=== PATIENT | female | born 1995 | race Caucasian/White ===

== ENCOUNTER → 2022-09-01 11:21 | Outpatient (CLI) | payer OTHER, BC, SELFPAY ==
[2022-09-01 11:54] LABS: Basophils # 0.1 K/mm3 (0-0.2); Basophils % 0.8 % (0.1-2.0); Eosinophils # 0.1 K/mm3 (0.0-0.4); Eosinophils % 1.5 % (0.1-12.0); Hematocrit 41.3 % (37.0-47.0); Hemoglobin 13.2 g/dL (12.2-16.2); Lymphocytes % 24.1 % (10-50); Mean Corpuscular Volume 84.5 fl (81-99); Monocytes # 0.5 K/mm3 (0.1-1.0); Monocytes % 5.6 % (1.7-9.3); Neutrophils # 5.6 K/mm3 (1.8-7.8); Neutrophils % 67.8 % (37.0-80.0); Platelet Count 340 K/mm3 (142-424); Red Blood Count 4.89 M/mm3 (4.20-5.40); Red Cell Distribution Width 14.1 % (11.5-17.5); White Blood Count 8.2 K/mm3 (4.8-10.8)
[2022-09-01 12:28] LABS: Alanine Aminotransferase 40 U/L (12-78); Albumin Level 4.6 g/dl (3.5-5.0); Albumin/Globulin Ratio 1.5 (1.1-1.8); Alkaline Phosphatase 75 U/L (38-126); Aspartate Amino Transferase 32 U/L (14-36); Bilirubin,Total 0.8 mg/dl (0.2-1.3); Blood Urea Nitrogen 10 mg/dl (7-17); Calcium 9.3 mg/dl (8.4-10.2); Carbon Dioxide 27 mmol/L (22.0-30.0); Chloride 102 mmol/L (98-107); Estimated Glomerular Filt Rate 102 ml/min (>60); GFR (African American) 123 ML/MIN (>60); Glucose 126 mg/dl (74-100); Sodium 141 mmol/L (136-145); Total Protein,Serum 7.6 g/dl (6.3-8.2)
[2022-09-01 12:44] LABS: 25-OH Vitamin D, Total 27.6 ng/mL (30-100)
[2022-09-01 13:00] LABS: Thyroid Stimulating Hormone 1.63 uIU/mL (0.465-4.68)
[2022-09-01 13:19] LABS: Vitamin B12 642 pg/mL (239-931)
[2022-09-01 17:16] LABS: Anion Gap 16.1 mEq/L (5-15); Potassium 4.1 mmoL/L (3.5-5.1)
== END ==
PROVIDERS: PCP Nurse Practitioner Family; Visit Provider Nurse Practitioner Family
DX: R73.03 Prediabetes (principal); R20.2 Paresthesia of skin; E55.9 Vitamin D deficiency, unspecified
CPT/HCPCS: 36415; 80053; 82306; 82607; 83036; 84443; 85025

== ENCOUNTER → 2022-12-14 16:12 | Outpatient (CLI) | payer OTHER, BC, SELFPAY ==
[2022-12-14 18:03] LABS: C-Reactive Protein 24.8 mg/L (0-4)
[2022-12-14 18:09] LABS: 25-OH Vitamin D, Total 42.4 ng/mL (30-100)
[2022-12-14 18:34] LABS: Erythrocyte Sedimentation Rate 13 mm/hr (0-20)
== END ==
PROVIDERS: PCP Nurse Practitioner Family; Visit Provider Nurse Practitioner Family
DX: M25.9 Joint disorder, unspecified (principal); E55.9 Vitamin D deficiency, unspecified
CPT/HCPCS: 36415; 82306; 85651; 86140

== ENCOUNTER → 2023-01-28 08:47 | Outpatient (CLI) | payer OTHER, SELFPAY ==
--- NOTE | 2023-01-28 08:57 | XR_ITS ---
FINAL REPORT CLINICAL HISTORY: wrist pain FINDINGS: LEFT WRIST Three views demonstrate no acute fracture or dislocation. The visualized joint spaces are normally aligned. The joint spaces are intact. The soft tissues are unremarkable. IMPRESSION: No acute bony abnormality. Reviewed, Interpreted and Dictated by Emanuel Cabrera III, MD Transcribed by Nury French Authenticated and [facility]
--- NOTE | 2023-01-28 08:57 | XR_ITS ---
FINAL REPORT CLINICAL HISTORY: wrist pain FINDINGS: RIGHT WRIST Three views demonstrate no acute fracture or dislocation. The visualized joint spaces are normally aligned. The joint spaces are intact. The soft tissues are unremarkable. IMPRESSION: No acute bony abnormality. Reviewed, Interpreted and Dictated by Emanuel Cabrera III, MD Transcribed by Nury French Authenticated and [facility]
== END ==
PROVIDERS: PCP Nurse Practitioner Family; Visit Provider Orthopaedic Surgery
DX: M25.532 Pain in left wrist (principal); M25.531 Pain in right wrist
CPT/HCPCS: 73110

== ENCOUNTER 2023-04-09 08:52 | Outpatient (RCR) | payer OTHER, SELFPAY | END 2023-04-09 10:00 | disposition home or self-care (01) | LOC: OT 08:52 | PROVIDERS: Visit Provider Orthopaedic Surgery | DX: G56.03 Carpal tunnel syndrome, bilateral upper limbs (principal) | CPT/HCPCS: 97763 ==

== ENCOUNTER 2023-06-15 14:46 | Emergency (ER) | payer OTHER, SELFPAY ==
[2023-06-15 14:47] VITALS: BP 148/105; PULSE 90; RESP 16; TEMP 36.6; O2SAT 99; BMI 31.4
[2023-06-15 15:16] LABS: UTC Strep Screen (Rapid) Negative (Negative)
--- NOTE | 2023-06-15 15:43 | EXP.UTC ---
Discharge Plan Disposition Patient Disposition: Home, Self-Care Condition: Good Prescriptions Prescriptions: New amoxicillin 875 mg tablet 875 mg PO BID 10 Days Qty: 20 0RF fluticasone propionate [Flonase Allergy Relief] 50 mcg/actuation spray,suspension 1 - 2 spray intranasal DAILY Qty: 16 0RF Rx Instructions: administer into each nostril No Action bupropion HCl 150 mg tablet extended release 24 hr 150 mg PO DAILY nifedipine 30 mg tablet extended release 24 hr 30 mg PO DAILY labetalol 100 mg tablet 100 mg PO BID metformin 500 mg tablet extended release 24 hr 500 mg PO BID omeprazole 20 mg capsule,delayed release(DR/EC) 20 mg PO DAILY trazodone 50 mg tablet 50 mg PO HS Referrals Follow up/Referrals: Destiny Bright APRN [Primary Care Provider] - See instructions Activity Restrictions/Add. Instructions Additional Instructions/Restrictions: *Monitor Temp, Over the counter Motrin or Tylenol as directed/as needed Tylenol every 4 hours and Motrin every 6 hours (as long as your family doctor has told you that you can take it) for fever or pain. and straight to ER if unable to lower temp less than 101.0 after medication given *Warm salt water gargles may help to soothe the throat *Throat Lozenges? *Warm fluids like tea with honey may help to soothe the throat? *Sleep elevated *Humidifier/Vaporizer *Flonase 2 sprays in each nostril daily but be aware that it may take 2-3 days before you notice improvement Your throat swab was sent for culture. Those results are typically sent to your primary care. Be sure to follow up in 2-3 days with your family doctor/primary care physician if no improvement so they can review those result and treat if necessary. If you don?t have a primary care doctor, I recommend you get one but in the mean time, you will have to return to a walk in clinic Follow up IMMEDIATELY for new or worsening symptoms or no Noticeable improvement over the next 48-72 hours. 911 for difficulty breathing or swallowing Clinical Impressions Clinical Impression: Otitis media Qualifiers: Otitis media type: in diseases classified elsewhere Laterality: bilateral Qualified Code(s): H67.3 - Otitis media in diseases classified elsewhere, bilateral Instructions Patient Instructions: Middle Ear Infection, Middle Ear Infections (Alternative Therapy) Discharge ED Provider: Snow Mcdonald [facility] [place] General Stated complaint: sore throat, runny nose, cough, bilateral ear pain Mode of Arrival: Ambulatory Source of Information: Patient Limitations: No Limitations Time Seen by Provider: 06/15/23 15:43 Description of Symptoms (Recalled from Triage Doc. by RN): Patient reports itchy/sore throat, dry cough, nasal drainage, bilateral ear pain and headache for a couple of days. HEENT Symptoms (Recalled from RN notes): Yes Resp Symptoms (Recalled from RN notes): No Skin Symptoms (Recalled from RN notes): No MS Symptoms (Recalled from RN notes): No Functional Status (Recalled from RN notes): wnl History of Present Illness Provider Complaint: Patient states for about a week she has been having bilateral ear pain and feeling of fullness in her ears States that for the last couple of days she started having sore throat, sinus congestion and drainage in the back of her throat and sore throat States that today she was feeling worse so she came in to get checked Related Data Home Medications Medication Instructions Recorded Confirmed bupropion HCl 150 mg 24 hr tablet, 150 mg PO DAILY 06/23/22 05/14/23 extended release nifedipine 30 mg tablet,extended 30 mg PO DAILY 06/23/22 05/14/23 release 24 hr labetalol 100 mg tablet 100 mg PO BID 05/14/23 05/14/23 metformin 500 mg tablet,extended 500 mg PO BID 05/14/23 05/14/23 release 24 hr omeprazole 20 mg capsule,delayed 20 mg PO DAILY 05/14/23 05/14/23 release trazodone 50 mg tablet 50 mg
[2023-06-15 15:59] VITALS: BP 148/105; PULSE 90; RESP 16; TEMP 36.6; O2SAT 99
== END 2023-06-15 16:00 | disposition home or self-care (01) ==
PROVIDERS: Emergency Provider Nurse Practitioner; PCP Nurse Practitioner Family
DX: H66.93 Otitis media, unspecified, bilateral
CPT/HCPCS: 87880; 99204; 99212; G0463

== ENCOUNTER 2023-09-10 14:38 | Emergency (ER) | payer OTHER, SELFPAY ==
[2023-09-10 14:55] VITALS: BP 140/90; PULSE 81; RESP 19; TEMP 37; O2SAT 99; BMI 30.4
[2023-09-10 15:13] LABS: Color,Urine Dark Yellow (Yellow)
[2023-09-10 15:14] LABS: Apearance,Urine Cloudy (Clear); Bilirubin,Urine 1+ (Negative); Blood, Urine Negative (Negative); Glucose,Urine (UA) Negative (Negative); Ketones,Urine TRACE (Negative); Protein,Urine 1+ (Negative); UTC Leukocyte Esterase,Urine Trace (Negative); UTC Nitrate,Urine Negative (Negative); Urobilinogen,Urine 0.2 EU/dl (0.2)
--- NOTE | 2023-09-10 15:25 | EXP.UTC ---
Discharge Plan Disposition Patient Disposition: Home, Self-Care Condition: Good Prescriptions Prescriptions: New nitrofurantoin monohyd/m-cryst [Macrobid] 100 mg capsule 100 mg PO Q12H 5 Days Qty: 10 0RF Rx Instructions: must administer with a meal/food No Action bupropion HCl 150 mg tablet extended release 24 hr 150 mg PO DAILY nifedipine 60 mg tablet extended release 24hr 60 mg PO DAILY trazodone 50 mg tablet 100 mg PO HS Qty: 30 2RF ibuprofen 800 mg tablet 800 mg PO Q8H Qty: 90 2RF labetalol 100 mg tablet 100 mg PO BID metformin 500 mg tablet extended release 24 hr 500 mg PO BID omeprazole 20 mg capsule,delayed release(DR/EC) 20 mg PO DAILY Referrals Follow up/Referrals: Destiny Bright APRN [Primary Care Provider] - See instructions Activity Restrictions/Add. Instructions Additional Instructions/Restrictions: *Increase fluids. Water not Soda or Tea *Start antibiotic immediately and be sure to take as ordered for the FULL length of time although you should start to see improvement over the next 48 hours *Be SURE to follow up anytime for new or worsening symptoms with your family doctor. AND in 48 hours for urine culture results with your family doctor, if you do not have a doctor then you may call back to the [facility] for urine culture results and further treatment. We do recommend that you choose and establish care with a Primary Care Physician. ?AND follow up with them ?in 10-14 days to repeat UA to ensure infection is resolved and blood no longer present *Be sure to let your PCP know that we sent urine cultures from the [facility] so they can follow up to ensure that you area the on the correct antibiotic Call your doctor office and make appointment for 48 hours (2 days from today) ?to follow up and get the results of your urine culture and further treatment Clinical Impressions Clinical Impression: UTI (urinary tract infection) Qualifiers: Urinary tract infection type: site unspecified Hematuria presence: without hematuria Qualified Code(s): N39.0 - Urinary tract infection, site not specified Instructions Patient Instructions: DI for Urinary Tract Infection (UTI), Nitrofurantoin Discharge ED Provider: Snow Mcdonald [facility] [place] HPI General Stated complaint: POSSIBLE UTI Mode of Arrival: Ambulatory Source of Information: Patient Limitations: No Limitations Time Seen by Provider: 10/27/23 15:25 Description of Symptoms (Recalled from Triage Doc. by RN): PATIENT C/O FREQUENT URINATION X 3 DAYS HEENT Symptoms (Recalled from RN notes): No Resp Symptoms (Recalled from RN notes): No Skin Symptoms (Recalled from RN notes): No MS Symptoms (Recalled from RN notes): No Functional Status (Recalled from RN notes): WNL History of Present Illness Provider Complaint: Patient states that she has been having urinary frequency and urgency for the last few days states that she feels like she may have a UTI again Related Data Home Medications Medication Instructions Recorded Confirmed bupropion HCl 150 mg 24 hr tablet, 150 mg PO DAILY 06/23/22 08/10/23 extended release labetalol 100 mg tablet 100 mg PO BID 05/14/23 08/10/23 metformin 500 mg tablet,extended 500 mg PO BID 05/14/23 08/10/23 release 24 hr omeprazole 20 mg capsule,delayed 20 mg PO DAILY 05/14/23 08/10/23 release nifedipine 60 mg tablet,extended 60 mg PO DAILY 08/10/23 08/10/23 release 24 hr Previous Rx's Medication Instructions Recorded ibuprofen 800 mg tablet 800 mg PO Q8H #90 tabs 08/10/23 trazodone 50 mg tablet 100 mg PO HS #30 tabs 08/10/23 nitrofurantoin 100 mg PO Q12H 5 days #10 caps 09/10/23 monohydrate/macrocrystals 100 mg capsule (Macrobid) Allergies Allergy/AdvReac Type Severity Reaction Status Date / Time cephalexin [From Keflex] Allergy Severe Rash Verified 08/10/23 09:53 Worker's Comp Is this a Worker's Comp case?: No [facility] Disclaimer: The information cont
[2023-09-10 15:36] VITALS: BP 140/90; PULSE 81; RESP 19; TEMP 37; O2SAT 99
[2023-09-10 15:46] LABS: Urine Pregnancy, HCG Qual. Negative (Negative)
== END 2023-09-10 16:00 | disposition home or self-care (01) ==
PROVIDERS: Emergency Provider Nurse Practitioner; PCP Nurse Practitioner Family
DX: N39.0 Urinary tract infection, site not specified (principal); B96.89 Other specified bacterial agents as the cause of diseases classified elsewhere; I10 Essential (primary) hypertension
CPT/HCPCS: 81003; 81025; 87086; 99212; 99214; G0463

== ENCOUNTER 2023-10-18 17:09 | Emergency (ER) | payer OTHER, SELFPAY ==
[2023-10-18 19:30] VITALS: BP 117/84; PULSE 85; RESP 18; TEMP 37.1; O2SAT 99; BMI 28.5
--- NOTE | 2023-10-18 20:00 | EXP.UTC ---
Discharge Plan Disposition Patient Disposition: Home, Self-Care Condition: Good Prescriptions Prescriptions: No Action bupropion HCl 150 mg tablet extended release 24 hr 150 mg PO DAILY nifedipine 60 mg tablet extended release 24hr 60 mg PO DAILY labetalol 100 mg tablet 100 mg PO BID metformin 500 mg tablet extended release 24 hr 500 mg PO BID omeprazole 20 mg capsule,delayed release(DR/EC) 20 mg PO DAILY Referrals Follow up/Referrals: Destiny Bright APRN [Primary Care Provider] - See instructions Activity Restrictions/Add. Instructions Additional Instructions/Restrictions: *Monitor Temp, Over the counter Motrin or Tylenol as directed/as needed Tylenol every 4 hours and Motrin every 6 hours (as long as your family doctor has told you that you can take it) for fever or pain. and straight to ER if unable to lower temp less than 101.0 after medication given *Warm salt water gargles may help to soothe the throat *Throat Lozenges? *Warm fluids like tea with honey may help to soothe the throat? *Sleep elevated *Humidifier/Vaporizer *Flonase 2 sprays in each nostril daily but be aware that it may take 2-3 days before you notice improvement *Bromfed may cause drowsiness. Know how it effects you (your child) before driving, caring for small child, or sending your child to school. Not other antihistamines/allergy medications while taking bromfed Your throat swab was sent for culture. Those results are typically sent to your primary care. Be sure to follow up in 2-3 days with your family doctor/primary care physician if no improvement so they can review those result and treat if necessary. If you don?t have a primary care doctor, I recommend you get one but in the mean time, you will have to return to a walk in clinic Follow up IMMEDIATELY for new or worsening symptoms or no Noticeable improvement over the next 48-72 hours. 911 for difficulty breathing or swallowing You were tested for today for COVID19 your test result should be back later this evening You may check for your results on the [facility] if your COVID test is positive you must Quarantine for 5 days Clinical Impressions Clinical Impression: Viral syndrome Stand Alone Forms Stand Alone Forms: Work/School Release Instructions Patient Instructions: DI for Viral Syndrome Discharge ED Provider: Snow Mcdonald [facility] [place] General Stated complaint: zay, ear pain Mode of Arrival: Ambulatory Source of Information: Patient Limitations: No Limitations Time Seen by Provider: 10/18/23 20:00 Description of Symptoms (Recalled from Triage Doc. by RN): congestion, cough, and bilateral ear pain HEENT Symptoms (Recalled from RN notes): Yes Resp Symptoms (Recalled from RN notes): No Skin Symptoms (Recalled from RN notes): No MS Symptoms (Recalled from RN notes): No Functional Status (Recalled from RN notes): n/a History of Present Illness Provider Complaint: Patient states that she has been having bilateral ear pain and pressure, scratchy throat, nasal congestion and cough states that son has strep throat and she was recently around someone with COVID so she came in wanting to get tested Related Data Home Medications Medication Instructions Recorded Confirmed bupropion HCl 150 mg 24 hr tablet, 150 mg PO DAILY 06/23/22 10/18/23 extended release labetalol 100 mg tablet 100 mg PO BID 05/14/23 10/18/23 metformin 500 mg tablet,extended 500 mg PO BID 05/14/23 10/18/23 release 24 hr omeprazole 20 mg capsule,delayed 20 mg PO DAILY 05/14/23 10/18/23 release nifedipine 60 mg tablet,extended 60 mg PO DAILY 08/10/23 10/18/23 release 24 hr Allergies Allergy/AdvReac Type Severity Reaction Status Date / Time cephalexin [From Keflex] Allergy Severe Rash Verified 10/18/23 19:49 Worker's Comp Is this a Worker's Comp case?: No [facility] Disclaimer: The information contained
[2023-10-18 20:18] LABS: UTC Strep Screen (Rapid) Negative (Negative)
[2023-10-18 20:31] VITALS: BP 117/84; PULSE 85; RESP 18; TEMP 37.1; O2SAT 99
[2023-10-18 21:33] LABS: Coronavirus 19, PCR Not Detected (NotDetected); Influenza A, PCR Not Detected (NotDetected); Influenza B, PCR Not Detected (NotDetected)
== END 2023-10-18 20:31 | disposition home or self-care (01) ==
PROVIDERS: Emergency Provider Nurse Practitioner; PCP Nurse Practitioner Family
DX: H92.03 Otalgia, bilateral (principal); R05.9 Cough, unspecified; R09.81 Nasal congestion; R07.0 Pain in throat; Z20.818 Contact with and (suspected) exposure to other bacterial communicable diseases; Z20.822 Contact with and (suspected) exposure to COVID-19; I10 Essential (primary) hypertension
CPT/HCPCS: 87636; 87880; 99212; 99213; G0463

== ENCOUNTER 2024-03-02 14:47 | Outpatient (CLI) | payer OTHER, SELFPAY ==
[2024-03-02 15:23] LABS: Basophils # 0.1 K/mm3 (0-0.2); Basophils % 0.6 % (0.1-2.0); Eosinophils # 0.2 K/mm3 (0.0-0.4); Eosinophils % 1.8 % (0.1-12.0); Hematocrit 40.7 % (37.0-47.0); Lymphocytes # 2.9 K/mm3 (0.7-4.5); Lymphocytes % 28.8 % (10-50); Mean Corpuscular Hemoglobin 26.8 pg (27.0-31.2); Mean Corpuscular Volume 83.7 fl (81-99); Mean Platelet Volume 8.3 fl (7.4-10.4); Monocytes # 0.7 K/mm3 (0.1-1.0); Monocytes % 6.9 % (1.7-9.3); Neutrophils # 6.3 K/mm3 (1.8-7.8); Neutrophils % 61.9 % (37.0-80.0); Platelet Count 327 K/mm3 (142-424); Red Blood Count 4.86 M/mm3 (4.20-5.40); Red Cell Distribution Width 15.3 % (11.5-17.5); White Blood Count 10.2 K/mm3 (4.8-10.8)
[2024-03-02 15:27] LABS: Alanine Aminotransferase 36 U/L (12-78); Albumin Level 4.8 g/dl (3.5-5.0); Albumin/Globulin Ratio 1.8 (1.1-1.8); Alkaline Phosphatase 47 U/L (38-126); Anion Gap 12.3 mEq/L (5-15); Aspartate Amino Transferase 30 U/L (14-36); Bilirubin,Total 0.7 mg/dl (0.2-1.3); Blood Urea Nitrogen 17 mg/dl (7-17); Calcium 10.5 mg/dl (8.4-10.2); Carbon Dioxide 28 mmol/L (22.0-30.0); Chloride 105 mmol/L (98-107); Estimated Glomerular Filt Rate 87 ml/min (>60); GFR (African American) 105 ML/MIN (>60); Globulin 2.7 g/dL (1.3-3.2); Glucose 96 mg/dl (74-100); Potassium 4.3 mmoL/L (3.5-5.1); Sodium 141 mmol/L (136-145); Total Protein,Serum 7.5 g/dl (6.3-8.2)
== END 2024-03-02 23:59 | disposition home or self-care (01) ==
LOC: LAB 14:48
PROVIDERS: PCP Nurse Practitioner Family; Visit Provider Orthopaedic Surgery
DX: Z01.818 Encounter for other preprocedural examination (principal); G56.01 Carpal tunnel syndrome, right upper limb
CPT/HCPCS: 36415; 80053; 85025

== ENCOUNTER 2024-03-06 06:03 | Day surgery (SDC) | payer OTHER, SELFPAY ==
[2024-03-06] VITALS (10 sets, daily range): BP systolic 127–162; BP diastolic 81–94; PULSE 82–92; RESP 16–22; TEMP 35.7–36.6; O2SAT 93–100; BMI 29.9
[2024-03-06] MEDS: LACTATED RINGERS 1000ML 1,000 ML 25 ML IV (06:27)
[2024-03-06 06:37] LABS: POC Glucose,Bedside 124 (70-110)
[2024-03-06 06:44] LABS: Urine Pregnancy, HCG Qual. Negative (Negative)
[2024-03-06] MEDS: CLINDAMYCIN PHOSPHATE/D5W 900 MG/50 ML PIGGYBACK 50 MG (07:25)
--- NOTE | 2024-03-06 07:52 | P.PNANES_ITS ---
[facility] Disclaimer: The information contained in this section may have been updated after the patient was seen, as this information can be updated by other users. Medical History Depression History of prediabetes History of PCOS Menorrhagia Hypertension Surgical History Hx of tonsillectomy Family History Other Cancer FHx: mental illness Heart attack Hypertension Social History (Updated 03/06/24 @ 06:28 by Micky Hernandez RN) Smoking Status: Never smoker alcohol intake: never substance use type: denies use current occupational status: employed Travel in the last 8 weeks: None [facility] Anesthesia Checklist Patient Identification Patient Identification: Verbal (Name & ) Structural Data Admitted From: Home Planned Operative Procedure/s: r carpal tunnel release Consent for Planned Operative Procedure(s) Verified: Yes NPO Status Verified Time NPO: 00:00 Additional verifications Anesthesia Reactions: No Hx Blood Transfusions: No Blood Transfusion Reaction: No Airway Assessment Mallampati Score:: Class II C-Spine Mobility Assessed: Yes TMJ Mobility Assessed: Yes Dentition: Partials Neurological Assessment Level of Consciousness: Awake, Alert and Appropriate Anesthesia Plan Anesthesia Risk discussed: Yes Anesthesia Plan: Verified ASA Class: II Anesthesia Type: General
[2024-03-06] MEDS: BUPIVACAINE 0.5% W/EPI 1:200,000 30ML VIAL 30 ML IJ ×2 (07:55)
--- NOTE | 2024-03-06 08:16 | P.OP_ITS ---
Date of procedure: 03/06/24 Pre-op Diagnosis:: Right carpal tunnel syndrome Post-op Diagnosis:: Same Procedure performed:: Right endoscopic carpal tunnel release Surgeon:: Gato Hill DO SPEECH PATHOLOGIST:: Nuvia Vargas Anesthesia: LMA Estimated blood loss (mL): 0 Operative findings:: See dictation Operative note:: Patient was identified preoperatively. Right wrist marked with yes and my initials. Transferred operative suite. Placed upon operating bed. General anesthesia ministered airway secured. Right upper extremity prepped and draped normal sterile fashion. Once prepped and draped final operative timeout perf ormed to identify proper patient procedure and extremity. Everyone involved the case agreed. There is no counter indications to beginning. Did receive preoperative antibiotics clindamycin. Marking pen was used to tiffany plan incision over the volar wrist. Esmarch was used to exsanguinate the extremity and pneumatic tourniquet inflated to 250 mmHg. Skin knife is used to incise through skin scissors used for dissection to take down bluntly to identify the most proximal aspect of the transverse carpal ligament. Retractors were placed. Once this was identified the dilators from the segue endoscopic carpal tunnel set were utilized followed by the right sided sled 4.0 mm into the carpal tunnel. Camera was then introduced into the carpal tunnel. Transverse carpal ligament clearly seen superiorly within the wound. A hooked probe was used to identify the most distal aspect the transverse carpal ligament the rasp was used to remove the soft tissue from the undersurface of the transverse carpal ligament and then the curved blade was utilized to open the transverse carpal ligament and release the carpal tunnel. Irrigation of the wound performed local anesthesia infiltrated the incision skin closed with nylon stitch sterile hand dressing placed patient waken anesthesia taken recovery stable condition. Condition: stable Disposition: PACU Complications:: None apparent
--- NOTE | 2024-03-06 08:20 | EXP.ANES.I ---
[facility] Anesthesia Record Part I Anesthesia Record I Intake, IV Amount: 200 Hydration: Adequate Estimated blood loss (mL): 5 Urine output (mL): 0 Blood Pressure: 142/93 SaO2: 94 Pulse Rate: 87 Airway Patency: Patent Respiratory Rate: 16 Temperature: 96.2 F Patient is:: Awake, Drowsy, Mask O2 (10L/min), Oral/Nasal airway (#26Fr Nasal trumpet RT. nare; #10.0 oral airway) and Stable Stable to PACU at:: 08:18
[2024-03-06 08:30] LABS: POC Glucose,Bedside 110 (70-110)
--- NOTE | 2024-03-06 12:14 | P.PNANES_ITS ---
[facility] Anesthesia Record Part II Anesthesia Record Part II Discharge Time: 08:43 Destination: Surgical Day Care (OP Surgery) PACU nurse assessment reviewed?: Yes Patient Condition:: Good Anesthesia Complications:: None Swallowing reflex intact?: Yes Airway Patency: Patent Cyanosis?: No Blood Pressure: 162/86 SaO2: 95 Respiratory Rate: 20 Pulse Rate: 90 Temperature: 96.2 F Mental Status: Alert & Oriented Pain level:: 0 Nausea and/or vomitting:: None Intake, IV Amount: 200 Hydration: Adequate
== END 2024-03-06 09:14 | disposition home or self-care (01) ==
PROVIDERS: PCP Nurse Practitioner Family; Visit Provider Orthopaedic Surgery
PROC: (CPT 64721; principal; 2024-03-06 07:30)
DX: G56.01 Carpal tunnel syndrome, right upper limb (principal)
CPT/HCPCS: 29848; 81025; 82962; 96374; J2405

== ENCOUNTER 2024-05-24 07:25 | Outpatient (CLI) | payer OTHER, SELFPAY ==
[2024-05-24 07:40] LABS: Basophils % 0.5 % (0.1-2.0); Eosinophils # 0.1 K/mm3 (0.0-0.4); Eosinophils % 1.9 % (0.1-12.0); Hematocrit 40.4 % (37.0-47.0); Lymphocytes # 1.3 K/mm3 (0.7-4.5); Lymphocytes % 22.6 % (10-50); Mean Corpuscular HGB Conc 32.3 g/dL (31.8-35.4); Mean Corpuscular Hemoglobin 27.8 pg (27.0-31.2); Mean Corpuscular Volume 86.1 fl (81-99); Mean Platelet Volume 7.9 fl (7.4-10.4); Monocytes # 0.6 K/mm3 (0.1-1.0); Monocytes % 10.9 % (1.7-9.3); Neutrophils # 3.8 K/mm3 (1.8-7.8); Neutrophils % 64.1 % (37.0-80.0); Platelet Count 275 K/mm3 (142-424); Red Blood Count 4.69 M/mm3 (4.20-5.40); White Blood Count 5.9 K/mm3 (4.8-10.8)
[2024-05-24 08:22] LABS: Alanine Aminotransferase 74 U/L (12-78); Albumin Level 4.5 g/dl (3.5-5.0); Albumin/Globulin Ratio 1.7 (1.1-1.8); Alkaline Phosphatase 45 U/L (38-126); Anion Gap 14.6 mEq/L (5-15); Aspartate Amino Transferase 42 U/L (14-36); Blood Urea Nitrogen 8 mg/dl (7-17); Calcium 9.4 mg/dl (8.4-10.2); Carbon Dioxide 25 mmol/L (22.0-30.0); Chloride 103 mmol/L (98-107); Estimated Glomerular Filt Rate 100 ml/min (>60); GFR (African American) 121 ML/MIN (>60); Globulin 2.7 g/dL (1.3-3.2); Glucose 119 mg/dl (74-100); Potassium 3.6 mmoL/L (3.5-5.1); Sodium 139 mmol/L (136-145); Total Protein,Serum 7.2 g/dl (6.3-8.2)
[2024-05-25 15:14] LABS: Insulin Level Total 35.7 uIU/mL (2.6-24.9)
== END 2024-05-24 23:59 | disposition home or self-care (01) ==
LOC: LAB 07:25
PROVIDERS: Orthopaedic Surgery; PCP Nurse Practitioner Family; Visit Provider Obstetrics & Gynecology
DX: N93.9 Abnormal uterine and vaginal bleeding, unspecified (principal); N94.6 Dysmenorrhea, unspecified; E28.2 Polycystic ovarian syndrome; N92.0 Excessive and frequent menstruation with regular cycle; I10 Essential (primary) hypertension; R73.03 Prediabetes
CPT/HCPCS: 36415; 80053; 83525; 85025

== ENCOUNTER 2024-05-29 06:47 | Day surgery (SDC) | payer OTHER, SELFPAY ==
[2024-05-25 12:44] VITALS: BMI 31.1
[2024-05-29] VITALS (10 sets, daily range): BP systolic 123–152; BP diastolic 79–97; PULSE 85–116; RESP 14–18; TEMP 36–36.6; O2SAT 91–98
[2024-05-29 07:07] LABS: Urine Pregnancy, HCG Qual. Negative (Negative)
[2024-05-29] MEDS: LACTATED RINGERS 1000ML 1,000 ML 100 ML IV (07:11)
[2024-05-29 07:17] LABS: POC Glucose,Bedside 116 (70-110)
--- NOTE | 2024-05-29 07:41 | EXP.ANES.CKL ---
[facility] Disclaimer: The information contained in this section may have been updated after the patient was seen, as this information can be updated by other users. Medical History Prediabetes Depression History of prediabetes History of PCOS Menorrhagia Hypertension Surgical History History of carpal tunnel surgery Hx of tonsillectomy Family History Other Cancer FHx: mental illness Heart attack Hypertension Social History (Updated 05/25/24 @ 12:41 by Becky Tripathi RN) Smoking Status: Never smoker alcohol intake: never substance use type: denies use current occupational status: employed Travel in the last 8 weeks: None [facility] Anesthesia Checklist Patient Identification Patient Identification: Arm Band Structural Data Admitted From: Home Planned Operative Procedure/s: Left Carpal Tunnel Release Consent for Planned Operative Procedure(s) Verified: Yes Verified Documents: Surgical Consent and History and Physical NPO Status Verified Time NPO: 00:00 Additional verifications Anesthesia Reactions: No Hx Blood Transfusions: No Blood Transfusion Reaction: No Airway Assessment Mallampati Score:: Class II C-Spine Mobility Assessed: Yes TMJ Mobility Assessed: Yes Dentition: Good Dentition Neurological Assessment Level of Consciousness: Awake, Alert and Appropriate Anesthesia Plan Anesthesia Risk discussed: Yes Anesthesia Plan: Verified ASA Class: II Anesthesia Type: General
[2024-05-29] MEDS: CLINDAMYCIN PHOSPHATE/D5W 900 MG/50 ML PIGGYBACK 100 MG IV (08:36)
[2024-05-29] MEDS: LIDOCAINE 1% 10ML MDV 10 ML (08:59)
[2024-05-29] MEDS: BUPIVACAINE 0.5% 10ML VIAL 50 MG (08:59)
--- NOTE | 2024-05-29 09:13 | P.OP_ITS ---
Date of procedure: 05/29/24 Pre-op Diagnosis:: Left carpal tunnel syndrome Post-op Diagnosis:: Same Procedure performed:: Left endoscopic carpal tunnel release Surgeon:: Gaot Hill DO Director Radiation Oncology(s):: Nnamdi [employer] OPERATOR:: Nuvia Vargas Anesthesia: LMA Estimated blood loss (mL): 0 Operative findings:: See dictation Operative note:: Patient is identified preoperatively. Left wrist marked with yes and my initials. Taken the operating room. Placed upon operating bed. General anesthesia was administered airway secured. Left upper extremity was then prepped and draped normal sterile fashion. Once prepped and draped final operative timeout performed to identify proper patient procedure and extremity. Everyone involved the case agreed. There were no counter indications to beginning. She did receive preoperative antibiotics. Marking pen was used to make planned incision over the volar wrist. Esmarch was used to exsanguinate the extremity and pneumatic tourniquet was inflated to 250 mmHg. Skin knife was used incise through skin. Dissection was taken down with scissors and retractors were placed to identify the most proximal aspect the transverse carpal ligament. Small dilator was then placed in the carpal tunnel followed by the larger dilator followed by the 4.0 mm sled. Within the sled the camera was then placed in the carpal tunnel. Transverse carpal ligament clearly seen superiorly in the wound. Probe was used to identify the most distal aspect the transverse carpal ligament. Rasp was used to remove soft tissue from the undersurface transverse carpal ligament. And then the hook blade was utilized to incise the transverse carpal ligament in its full length. Irrigation of the wounds performed. Skin was closed with nylon stitches. Sterile hand dressing placed. Patient waken anesthesia taken recovery in stable condition. Condition: stable Disposition: PACU Complications:: None apparent
--- NOTE | 2024-05-29 09:23 | P.PNANES_ITS ---
[facility] Anesthesia Record Part I Anesthesia Record I Intake, IV Amount: 500 Hydration: Adequate Estimated blood loss (mL): 10 Urine output (mL): 0 Blood Products used (#): none Blood Pressure: 142/92 SaO2: 92 Pulse Rate: 96 Airway Patency: Patent Respiratory Rate: 16 Temperature: 96.8 F Patient is:: Awake (Talking after oral airway removed), Oral/Nasal airway (9.0 oral airway) and Stable Stable to PACU at:: 09:22
[2024-05-29 09:29] LABS: POC Glucose,Bedside 116 (70-110)
--- NOTE | 2024-05-29 11:03 | EXP.ANES.II ---
[facility] Anesthesia Record Part II Anesthesia Record Part II Discharge Time: 09:47 Destination: Surgical Day Care (OP Surgery) PACU nurse assessment reviewed?: Yes Patient Condition:: Good Anesthesia Complications:: None Swallowing reflex intact?: Yes Airway Patency: Patent Cyanosis?: No Blood Pressure: 134/79 SaO2: 93 Respiratory Rate: 18 Pulse Rate: 86 Temperature: 96.8 F Mental Status: Alert & Oriented Pain level:: 0 Nausea and/or vomitting:: None Intake, IV Amount: 500 Hydration: Adequate
== END 2024-05-29 10:20 | disposition home or self-care (01) ==
PROVIDERS: PCP Nurse Practitioner Family; Visit Provider Orthopaedic Surgery
PROC: (CPT 64721; principal; 2024-05-29 08:30)
DX: G56.02 Carpal tunnel syndrome, left upper limb (principal); E11.9 Type 2 diabetes mellitus without complications; Z79.84 Long term (current) use of oral hypoglycemic drugs
CPT/HCPCS: 29848; 81025; 82962; 96374; J1100; J1885; J2250; J2405; J3010; J7120

== ENCOUNTER 2024-06-08 08:21 | Outpatient (CLI) | payer OTHER, SELFPAY ==
[2024-06-09 08:21] LABS: FSH 5.2 mIU/mL (.); LH 11.5 mIU/mL (.); Progesterone 0.1 ng/mL (.)
== END 2024-06-08 23:59 | disposition home or self-care (01) ==
LOC: LAB 08:22
PROVIDERS: PCP Nurse Practitioner Family; Visit Provider Obstetrics & Gynecology
DX: E28.2 Polycystic ovarian syndrome (principal)
CPT/HCPCS: 36415; 83001; 83002; 84144

== ENCOUNTER 2024-06-16 12:47 | Outpatient (CLI) | payer OTHER, SELFPAY ==
--- NOTE | 2024-06-16 12:48 | US_ITS ---
PROCEDURE: US TRANSVAGINAL CLINICAL INDICATION: US TV for FOLLICLE SCAN -DAY 11-14 COMPARISON: No exams were available for comparison FINDINGS: Transvaginal sonographic images of the pelvis were obtained. UTERUS: 8.2cm x 4.5cmx 4.0cm anteverted with a combined endometrial thickness of 7.9mm. The endometrium has a heterogenous appearance. There is a small hypoechoic area within the endometrium. LEFT OVARY: 3.3cmx1.3cmx3.0cm with a volume of 6.7ml. Follicle 1. 1.23 cm Follicle 2. 0.6 cm Follicle 3. 0.5 cm Follicle 4. 0.83 cm Follicle 5. 0.9 cm Follicle 6. 0.54 cm Follicle 7. 0.63 cm Follicle 8. 0.67 cm The ovary has a polycystic appearance and there are multiple other small follicles. RIGHT OVARY: 4.4cmx 3.0cmx2.8 cm with a volume of 18.8ml. Follicle 1. 1.35 cm Follicle 2. 1.2 cm Follicle 3. 0.56 cm Follicle 4. 0.78 cm Follicle 5. 0.60 cm Follicle 6. 1.24 cm The ovary has a polycystic appearance and there are multiple small follicles within the ovary. Both ovaries are seen and appear polycystic. Doppler flow to both ovaries are seen. There is no fluid in the cul-de-sac. IMPRESSION: 1. Anteverted uterus normal in shape and size. The endometrium is heterogenous and measures 7.6 mm. 2. Both ovaries are seen and appear polycystic. There are at least 8 follicles on the left ovary and 6 follicles on the right ovary. 3. No fluid in the cul-de-sac. Dictated by: Calixto Pena MD 06/17/2024 10:35 Calixto Pena MD in OV 06/17/2024 10:35
== END 2024-06-16 23:59 | disposition home or self-care (01) ==
LOC: RAD 12:48
PROVIDERS: PCP Nurse Practitioner Family; Visit Provider Obstetrics & Gynecology
DX: E28.2 Polycystic ovarian syndrome (principal); Z31.41 Encounter for fertility testing
CPT/HCPCS: 76830

== ENCOUNTER 2024-06-22 12:42 | Outpatient (CLI) | payer OTHER, SELFPAY ==
--- NOTE | 2024-06-22 12:43 | US_ITS ---
PROCEDURE: US TRANSVAGINAL CLINICAL INDICATION: follow up ovulation scan to measure/monitor ovaria COMPARISON: US US TRANSVAGINAL from 06/16/2024 FINDINGS: Transvaginal sonographic images of the pelvis were obtained. UTERUS: 9.1cm x 4.4cm anteverted with a combined endometrial thickness of 11.7mm. The endometrium appears trilaminar. LEFT OVARY: 4.0cmx3.1cmx3.2cm with a volume of 20.8ml. Follicle 1. 2.06 cm Follicle 2. 0.51 cm Follicle 3. 0.47 cm Follicle 4. 1.47 cm Follicle 5. 0.66 cm Follicle 6. 0.62 RIGHT OVARY: 5.0cmx 4.2cmx3.2cm with a volume of 35.1ml. Follicle 1. 2.29 cm Follicle 2. 0.37 cm Follicle 3. 0.50 cm Follicle 4. 0.63 cm Follicle 5. 0.66 cm There are multiple small peripheral follicles. Both ovaries are seen and appear normal. Doppler flow to both ovaries are seen. There is no fluid in the cul-de-sac. IMPRESSION: 1. Anteverted uterus normal in shape and size. The endometrium is 11.7 mm and trilaminar. 2. Both ovaries are seen and have multiple follicles. The left ovary has 2 prominent follicles measuring 2.06 cm and 1.47 cm. The left ovary has a dominant follicle measuring 2.29 cm. 3. No fluid in the cul-de-sac. Dictated by: Calixto Pena MD 06/22/2024 17:23 Calixto Pena MD in [place] 06/22/2024 17:23
== END 2024-06-22 23:59 | disposition home or self-care (01) ==
LOC: RAD 12:43
PROVIDERS: PCP Nurse Practitioner Family; Visit Provider Obstetrics & Gynecology
DX: E28.2 Polycystic ovarian syndrome (principal); Z31.9 Encounter for procreative management, unspecified
CPT/HCPCS: 76830

== ENCOUNTER 2024-06-26 07:11 | Outpatient (CLI) | payer OTHER, SELFPAY ==
[2024-06-27 08:30] LABS: FSH 3.3 mIU/mL (.); LH 21.1 mIU/mL (.); Progesterone 15.5 ng/mL (.)
== END 2024-06-26 23:59 | disposition home or self-care (01) ==
LOC: LAB 07:12
PROVIDERS: PCP Nurse Practitioner Family; Visit Provider Obstetrics & Gynecology
DX: E28.2 Polycystic ovarian syndrome (principal)
CPT/HCPCS: 36415; 83001; 83002; 84144

== ENCOUNTER 2024-07-05 10:50 | Outpatient (CLI) | payer OTHER, SELFPAY ==
[2024-07-05 12:48] LABS: HCG,Quantitative 36 mIU/ml (0-5.42)
[2024-07-06 12:12] LABS: Progesterone 35.8 ng/mL (.)
== END 2024-07-05 23:59 | disposition home or self-care (01) ==
PROVIDERS: PCP Nurse Practitioner Family; Visit Provider Obstetrics & Gynecology
DX: N91.2 Amenorrhea, unspecified (principal)
CPT/HCPCS: 36415; 84144; 84702

== ENCOUNTER 2024-07-07 07:23 | Outpatient (CLI) | payer OTHER, SELFPAY ==
[2024-07-07 08:41] LABS: HCG,Quantitative 106 mIU/ml (0-5.42)
== END 2024-07-07 23:59 | disposition home or self-care (01) ==
LOC: LAB 07:24
PROVIDERS: PCP Nurse Practitioner Family; Visit Provider Obstetrics & Gynecology
DX: N91.2 Amenorrhea, unspecified (principal)
CPT/HCPCS: 36415; 84702

== ENCOUNTER 2024-07-09 19:03 | Emergency (ER) | payer OTHER, SELFPAY ==
[2024-07-09 19:04] VITALS: BP 178/87; PULSE 158; RESP 22; TEMP 36.6; O2SAT 97; BMI 30.9
--- NOTE | 2024-07-09 19:10 | ECG_ITS ---
APPROVED REPORT Exam: Resting ECG HR:150 bpm ECG Measurements Heart Rate 150 AXES WY 120 P 71 QRSd 71 QRS 78 QT 266 T 10 QTc 352 Conclusion SINUS TACHYCARDIA NONSPECIFIC ST & T-WAVE ABNORMALITY CRITICAL TEST RESULT Electronically signed by : PATRICK QUARLES, 07/10/2024 15:10:09
--- NOTE | 2024-07-09 19:13 | XR_ITS ---
PROCEDURE INFORMATION: Exam: XR Chest Exam date and time: 07/09/2024 8:34 PM Age: 29 years old Clinical indication: Other: Tachycardia TECHNIQUE: Imaging protocol: Radiologic exam of the chest. Views: 1 view. COMPARISON: No relevant prior studies available. FINDINGS: Lungs: No evidence of acute pulmonary disease or infiltrates Pleural spaces: No large effusion or pneumothorax. Heart/Mediastinum: No evidence of mediastinal widening or cardiac silhouette enlargement; the mediastinum and heart appear within normal limits for contour and size. Bones/joints: No evidence of acute osseous abnormalities within the visualized portions of the thoracic spine and ribs. Osseous structures appear appropriate for patient age. Soft tissues: There are bilateral nipple piercings. IMPRESSION: No dense parenchymal consolidation, pleural effusion, or pneumothorax.
[2024-07-09 19:30] VITALS: BP 173/100; PULSE 140; O2SAT 97
[2024-07-09 19:31] VITALS: BP 165/94; PULSE 145; O2SAT 97
--- NOTE | 2024-07-09 19:32 | PC.NURSE ---
Paged on-call OBGYN for Dr. Kirkland
--- NOTE | 2024-07-09 19:34 | US_ITS ---
PROCEDURE INFORMATION: Exam: US , Transvaginal Exam date and time: 07/09/2024 7:49 PM Age: 29 years old Clinical indication: Lmp or gestational age (in weeks): Lmp 06/06/2024; Other: Tachycardia; ; Additional info: Rule out ectopic LABS AND CLINICAL REPORTS: Last menstrual period start date: 06/06/2024 Gestational age (Established): 4 w 5 d Estimated due date (Established): 03/13/2025 TECHNIQUE: Imaging protocol: Real-time transvaginal obstetrical ultrasound of the maternal pelvis with image documentation. Transvaginal imaging was used for better evaluation of the fetus, adnexa, and/or cervix. COMPARISON: US TRANSVAGINAL 06/22/2024 12:48 PM FINDINGS: Gestation: No intra or extra uterine gestational sac is identified. MATERNAL: Right ovary/adnexa: Right ovary measures 4.23 cm x 4.85 cm x 3.43 cm. Right ovarian volume is 36.84 mL. There is a right ovarian corpus luteum measuring 2.5 cm. Left ovary/adnexa: Left ovary measures 4.26 cm x 3.49 cm x 2.82 cm. Left ovarian volume is 21.95 mL. Intraperitoneal space: Small volume free fluid is noted in the pelvis. IMPRESSION: No intra or extra uterine gestational sac identified.
--- NOTE | 2024-07-09 19:36 | PC.NURSE ---
Dr. Kirkland s/w Dr. Mindy Tom
--- NOTE | 2024-07-09 19:38 | PC.NURSE ---
called radiology to have on-call u/s tech come in for OB transvaginal us
[2024-07-09 19:40] LABS: VBG Base Excess -1.9 mmol/L (-2.4-2.3); VBG Oxygen Saturation 99.2 % (50-70); VBG PCO2 31.8 mmol/L (35-51); VBG PH 7.46 mmol/L (7.31-7.41); VBG PO2 134.9 mmol/L (28-40)
--- NOTE | 2024-07-09 19:40 | HMH.EDGENADL ---
Discharge Plan Disposition Patient Disposition: Home, Self-Care Chief Complaint: Arrhythmia/Palpitations Prescriptions Prescriptions: No Action bupropion HCl 150 mg tablet extended release 24 hr 150 mg PO DAILY nifedipine 60 mg tablet extended release 24hr 60 mg PO DAILY labetalol 100 mg tablet 100 mg PO BID metformin 500 mg tablet extended release 24 hr 500 mg PO BID omeprazole 20 mg capsule,delayed release(DR/EC) 20 mg PO DAILY tramadol 50 mg tablet 50 mg PO Q6H PRN (Reason: post op pain) Qty: 20 0RF Referrals Follow up/Referrals: Destiny Bright APRN [Primary Care Provider] - See instructions Activity Restrictions/Add. Instructions Additional Instructions/Restrictions: Call your family doctor to establish care for this visit to the emergency department and schedule follow-up within 48 hours to ensure improvement. If you have any worsening of your condition or any other concerning signs or symptoms, return to the emergency department or your primary care doctor for further evaluation. Collect 24-hour urine and call Dr. Tom's office for further information on drop off. Clinical Impressions Clinical Impression: Hypertension, Tachycardia, Early stage of Print Language Print Language: Armenian Discharge ED Provider: Terry Kirkland General Adult HPI General Chief complaint: Arrhythmia/Palpitations Stated complaint: heart rate 160 five weeks preg Time Seen by Provider: 07/09/24 19:12 Mode of Arrival: Ambulatory Source of Information: Patient Limitations: No Limitations Description of Symptoms (Recalled from ER Triage Doc. by RN): high heart rate History of Present Illness HPI narrative: Please note that above description of symptoms, in this electronic medical record under categorization of recalled from ER triage doctor by RN are reflective of an initial nursing assessment, however, is not reflective of my full history and physical exam that was personally taken and clarified. Consequentially, this preceding description of symptoms, which may include the patient's categorized chief complaint in the EMR, do not reflect my personal clinical impression, and the ultimate description of history of present illness and patient stated complaints should be deferred to this section of the note. Unless stated otherwise or congruent with this section of the note, additional signs, symptoms, or incongruence should be interpreted as inaccurate with my clinical impression. Related Data Home Medications ?Medication ?Instructions ?Recorded ?Confirmed bupropion HCl 150 mg 24 hr tablet, 150 mg PO DAILY 06/23/22 07/09/24 extended release labetalol 100 mg tablet 100 mg PO BID 05/14/23 07/09/24 metformin 500 mg tablet,extended 500 mg PO BID 05/14/23 07/09/24 release 24 hr omeprazole 20 mg capsule,delayed 20 mg PO DAILY 05/14/23 07/09/24 release nifedipine 60 mg tablet,extended 60 mg PO DAILY 08/10/23 07/09/24 release 24 hr Previous Rx's ?Medication ?Instructions ?Recorded tramadol 50 mg tablet 50 mg PO Q6H PRN post op pain #20 05/29/24 tabs Allergies Allergy/AdvReac Type Severity Reaction Status Date / Time cephalexin [From Keflex] Allergy Severe Rash Verified 07/05/24 10:26 [facility] Disclaimer: The information contained in this section may have been updated after the patient was seen, as this information can be updated by other users. Medical History PCOS (polycystic ovarian syndrome) Prediabetes Depression History of prediabetes History of PCOS Menorrhagia Hypertension Surgical History History of carpal tunnel surgery Hx of tonsillectomy Family History Other Cancer FHx: mental illness Heart attack Hypertension Social History Smo
[2024-07-09 19:44] LABS: Lactate Venous 2.3 mmol/L (0.4-2.0)
--- NOTE | 2024-07-09 19:55 | PC.NURSE ---
patient taken to ultrasound
[2024-07-09 20:02] LABS: Basophils # 0.1 K/mm3 (0-0.2); Basophils % 0.6 % (0.1-2.0); Eosinophils # 0.1 K/mm3 (0.0-0.4); Eosinophils % 0.9 % (0.1-12.0); Hematocrit 40.2 % (37.0-47.0); Hemoglobin 12.9 g/dL (12.2-16.2); Lymphocytes # 3.5 K/mm3 (0.7-4.5); Lymphocytes % 25.8 % (10-50); Mean Corpuscular HGB Conc 32.2 g/dL (31.8-35.4); Mean Corpuscular Hemoglobin 27.6 pg (27.0-31.2); Mean Corpuscular Volume 85.6 fl (81-99); Mean Platelet Volume 8.2 fl (7.4-10.4); Neutrophils # 8.9 K/mm3 (1.8-7.8); Neutrophils % 65.7 % (37.0-80.0); Platelet Count 307 K/mm3 (142-424); Red Blood Count 4.69 M/mm3 (4.20-5.40); Red Cell Distribution Width 14.6 % (11.5-17.5); White Blood Count 13.6 K/mm3 (4.8-10.8)
[2024-07-09 20:09] LABS: Alanine Aminotransferase 33 U/L (12-78); Albumin Level 4.4 g/dl (3.5-5.0); Albumin/Globulin Ratio 1.4 (1.1-1.8); Alkaline Phosphatase 47 U/L (38-126); Anion Gap 13.7 mEq/L (5-15); Aspartate Amino Transferase 34 U/L (14-36); Bilirubin,Total 0.6 mg/dl (0.2-1.3); Blood Urea Nitrogen 8 mg/dl (7-17); Calcium 9.3 mg/dl (8.4-10.2); Carbon Dioxide 21 mmol/L (22.0-30.0); Chloride 105 mmol/L (98-107); Creatinine Clearance Estimated 161 mL/min (50-200); Estimated Glomerular Filt Rate 100 ml/min (>60); GFR (African American) 121 ML/MIN (>60); Globulin 3.2 g/dL (1.3-3.2); Glucose 143 mg/dl (74-100); Magnesium 1.6 mg/dl (1.6-2.3); Potassium 3.7 mmoL/L (3.5-5.1); Sodium 136 mmol/L (136-145); Total Protein,Serum 7.6 g/dl (6.3-8.2)
[2024-07-09 20:13] LABS: D-Dimer 0.39 ug/mL (0.0-0.5)
--- NOTE | 2024-07-09 20:23 | PC.NURSE ---
Pt returned from [facility]. This RN restarted fluids
[2024-07-09 20:25] LABS: Troponin I < 0.01 ng/ml (0.00-0.034)
[2024-07-09 20:27] LABS: T4 (Thyroxine) 11.7 ug/dl (5.53-11.0)
[2024-07-09 20:41] LABS: Thyroid Stimulating Hormone 1.35 uIU/mL (0.465-4.68)
[2024-07-09 20:49] LABS: HCG,Quantitative 252 mIU/ml (0-5.42)
[2024-07-09 21:37] VITALS: BP 136/96; PULSE 109; RESP 18; TEMP 36.9; O2SAT 98
[2024-07-09 23:44] LABS: Reflex Lactic Add Lactic Reflex
== END 2024-07-09 21:44 | disposition home or self-care (01) ==
PROVIDERS: Emergency Provider Emergency Medicine; PCP Nurse Practitioner Family
DX: O10.011 Pre-existing essential hypertension complicating pregnancy, first trimester (principal); O99.411 Diseases of the circulatory system complicating pregnancy, first trimester; O99.281 Endocrine, nutritional and metabolic diseases complicating pregnancy, first trimester; R00.0 Tachycardia, unspecified; E28.2 Polycystic ovarian syndrome; Z3A.01 Less than 8 weeks gestation of pregnancy
CPT/HCPCS: 71045; 76830; 80050; 80053; 82803; 83735; 83880; 84436; 84443; 84484; 84702; 85025; 85378; 93005; 96361; 96374; 99285; J7120

== ENCOUNTER 2024-07-11 08:26 | Outpatient (CLI) | payer OTHER, SELFPAY ==
[2024-07-11 09:19] LABS: Total Volume,Urine 2150 mL (600-1600)
[2024-07-11 09:30] LABS: Total Protein 24 Hour,Urine 108 mg/24 hr (40-90); Total Protein,Urine Random < 5.0 mg/dL (0.0-12.0)
== END 2024-07-11 23:59 | disposition home or self-care (01) ==
LOC: LAB.DROPOF 08:28
PROVIDERS: PCP Nurse Practitioner Family; Visit Provider Obstetrics & Gynecology
DX: I10 Essential (primary) hypertension (principal)
CPT/HCPCS: 84155

== ENCOUNTER 2024-07-25 14:23 | Outpatient (CLI) | payer OTHER, SELFPAY ==
--- NOTE | 2024-07-25 14:24 | US_ITS ---
PROCEDURE: US OB <= 14 WEEKS FETUS CLINICAL INDICATION: dates and viability, ovarian cyst COMPARISON: US US TRANSVAGINAL from 07/09/2024 FINDINGS: Transvaginal sonographic images of the pelvis were obtained. From her last menstrual period she is 7weeks 0 days. The uterus is anteverted. An intrauterine gestational sac is present with a pole with a crown-rump length of 0.36cm This correlates to a gestational age of 6weeks 1day. STALIN 03/19/2025 heart tones are present with an FHR of 133bpm. Yolk sac is noted. The yolk sac measures 4.4mm. The right ovary is seen and appears normal. There is a follicle in the right ovary measuring 3.7 cm x 2.8 cm x 3.3 cm. The left ovary is seen and appears normal. There are several small peripheral follicles. The largest measures 1.6 cm. There appears to be a collapsing corpus luteum measuring 1.9 cm. There is a 2nd corpus luteum measuring 2.0 cm. There is no fluid in the cul-de-sac. IMPRESSION: 1. Anteverted uterus with a viable intrauterine gestation. heart rate activity is seen. 2. Fetus measures 6 weeks 1 day. Her due date should be revised to reflect this. STALIN will be 03/19/2025. 3. Both ovaries are seen and appear normal. There is a follicle on the right ovary measuring 3.7 cm. 4. There is no fluid in the cul-de-sac. Dictated by: Calixto Pena MD 07/26/2024 08:12 Calixto Pena MD in [place] 07/26/2024 08:12
[2024-07-25 16:31] LABS: Basophils # 0.1 K/mm3 (0-0.2); Basophils % 0.4 % (0.1-2.0); Eosinophils # 0.1 K/mm3 (0.0-0.4); Hematocrit 37.8 % (37.0-47.0); Hemoglobin 11.9 g/dL (12.2-16.2); Lymphocytes # 2.5 K/mm3 (0.7-4.5); Lymphocytes % 21.3 % (10-50); Mean Corpuscular HGB Conc 31.5 g/dL (31.8-35.4); Mean Corpuscular Hemoglobin 27.4 pg (27.0-31.2); Mean Platelet Volume 8.3 fl (7.4-10.4); Monocytes # 0.7 K/mm3 (0.1-1.0); Monocytes % 5.8 % (1.7-9.3); Neutrophils # 8.4 K/mm3 (1.8-7.8); Neutrophils % 71.4 % (37.0-80.0); Platelet Count 285 K/mm3 (142-424); Red Blood Count 4.35 M/mm3 (4.20-5.40); Red Cell Distribution Width 15.7 % (11.5-17.5); White Blood Count 11.7 K/mm3 (4.8-10.8)
[2024-07-26 08:55] LABS: HIV (1&2) Antibody Rapid NONREACTIVE (NONREACTIVE)
[2024-07-27 09:28] LABS: HCV Ab Non Reactive (Non Reactive); Hepatitis B Surface Antigen Negative (Negative)
[2024-07-27 11:18] LABS: Rubella Antibodies, IgG 5.05 index (Immune >0.99)
[2024-07-27 13:19] LABS: Rapid Plasma Reagin Ab Titer Non Reactive titer (NonRea<1:1)
[2024-07-28 06:25] LABS: Neisseria gonorrhoeae, NAA Negative (Negative)
== END 2024-07-25 23:59 | disposition home or self-care (01) ==
PROVIDERS: PCP Nurse Practitioner Family; Visit Provider Obstetrics & Gynecology
DX: Z34.81 Encounter for supervision of other normal pregnancy, first trimester (principal)
CPT/HCPCS: 36415; 76801; 85025; 86593; 86762; 86803; 86850; 87086; 87340; 87389; 87491; 87591

== ENCOUNTER 2024-09-08 09:32 | Outpatient (CLI) | payer OTHER, SELFPAY ==
[2024-09-08 10:43] LABS: Glucose,Fasting 100 mg/dl (74-100)
[2024-09-08 11:17] LABS: Hemoglobin A1C 5.7 % (4.0-6.0)
[2024-09-08 11:40] LABS: Glucose 1 Hour 204 mg/dL (74-100)
== END 2024-09-08 23:59 | disposition home or self-care (01) ==
LOC: LAB 09:34
PROVIDERS: PCP Nurse Practitioner Family; Visit Provider Obstetrics & Gynecology
DX: Z87.898 Personal history of other specified conditions (principal); O16.9 Unspecified maternal hypertension, unspecified trimester
CPT/HCPCS: 36415; 82951; 83036

== ENCOUNTER 2024-09-22 07:47 | Outpatient (CLI) | payer OTHER, SELFPAY ==
--- NOTE | 2024-09-22 07:49 | CA_ITS ---
APPROVED REPORT EXAM: Comprehensive 2D, Doppler, and color-flow Echocardiogram [employer] Librarian: Isabella Rodriguez RT(R) Ht: 5 ft 5 in Wt: 194lbs BSA: 1.95 BP: 122/78 mmHg Indications: tachycardia, HTN, palpitations, fatigue, currently 14 weeks. 2D Dimensions LA Volume 36.10 mL LA Volume Index 18.10 mL/m2 (M/F) 16-34 EF AP4 56.50 % GL Strain -20.2 % M-Mode Dimensions RVDd 2.75 cm (0.9-2.6) LA Diam 3.44 cm (1.9-4.0) LVDd 4.61 cm (3.5-5.7) LVDs 2.93 cm (3.5-5.7) IVSd 0.64 cm (0.6-1.1) PWd 0.93 cm (0.6-1.1) EF (Teich) 66.30% FS 36.40% EDV (Teich) 97.80 mL ESV (Teich) 33.00 mL LV Diastology E Decel Time 183 (160-240 msec) E/A Ratio 1.72 Mitral Valve MV E Max Jarek. 92.0 (40-130 cm/s) MV A Velocity 54.0 (40-130 cm/s) E/A Ratio 1.72 MV PHT 54.0 ms Left Ventricle The left ventricle is normal size. The left ventricular systolic function is normal. The left ventricular ejection fraction is within the normal range. There is normal LV segmental wall motion. The left ventricular diastolic function is normal. LVEF is 55%. Right Ventricle The right ventricle is normal size. The right ventricular systolic function is normal. Atria The left atrium size is normal. The right atrium size is normal. There is no Doppler evidence of interatrial shunt. Aortic Valve The aortic valve opens well. There is no aortic valvular stenosis. No aortic regurgitation is present. Mitral Valve The mitral valve is normal in structure. No evidence of mitral valve stenosis. Mild mitral regurgitation. Tricuspid Valve The tricuspid valve leaflets are thin and pliable. Trace tricuspid regurgitation. There is insufficient TR jet to estimate RVSP. Pulmonic Valve The pulmonary valve is normal in structure. Trace pulmonic regurgitation. Great Vessels The aortic root is normal in size. IVC is normal in size and collapses >50% with inspiration. Pericardium There is no pericardial effusion. Other Information Study Quality: Fair Conclusion Normal biventricular systolic function. Mild MR. Electronically signed by : Diane Escalera MD 09/25/2024 12:42:49
== END 2024-09-22 23:59 | disposition home or self-care (01) ==
LOC: RT 07:47
PROVIDERS: PCP Nurse Practitioner Family; Visit Provider Physician Assistant
DX: R00.0 Tachycardia, unspecified (principal); I10 Essential (primary) hypertension
CPT/HCPCS: 93306

== ENCOUNTER 2024-10-06 15:39 | Outpatient (CLI) | payer OTHER, SELFPAY ==
[2024-10-06 15:54] LABS: Basophils # 0.1 K/mm3 (0-0.2); Basophils % 0.4 % (0.1-2.0); Eosinophils # 0.2 K/mm3 (0.0-0.4); Eosinophils % 1.7 % (0.1-12.0); Hematocrit 34.6 % (37.0-47.0); Hemoglobin 11.5 g/dL (12.2-16.2); Lymphocytes # 2.4 K/mm3 (0.7-4.5); Lymphocytes % 20.1 % (10-50); Mean Corpuscular HGB Conc 33.4 g/dL (31.8-35.4); Mean Corpuscular Hemoglobin 27.6 pg (27.0-31.2); Mean Corpuscular Volume 82.6 fl (81-99); Mean Platelet Volume 8.4 fl (7.4-10.4); Monocytes # 0.7 K/mm3 (0.1-1.0); Neutrophils # 8.5 K/mm3 (1.8-7.8); Neutrophils % 71.9 % (37.0-80.0); Platelet Count 268 K/mm3 (142-424); Red Blood Count 4.18 M/mm3 (4.20-5.40); Red Cell Distribution Width 14.6 % (11.5-17.5); White Blood Count 11.8 K/mm3 (4.8-10.8)
[2024-10-06 16:07] LABS: Creatinine,Urine Random 292 mg/dL (Not Estab.); Total Protein,Urine Random < 5.0 mg/dL (0.0-12.0)
[2024-10-06 16:24] LABS: Alanine Aminotransferase 18 U/L (12-78); Albumin Level 3.8 g/dl (3.5-5.0); Albumin/Globulin Ratio 1.5 (1.1-1.8); Aspartate Amino Transferase 22 U/L (14-36); Blood Urea Nitrogen 10 mg/dl (7-17); Calcium 9.4 mg/dl (8.4-10.2); Carbon Dioxide 19 mmol/L (22.0-30.0); Estimated Glomerular Filt Rate 148 ml/min (>60); GFR (African American) 179 ML/MIN (>60); Globulin 2.5 g/dL (1.3-3.2); Glucose 107 mg/dl (74-100); Total Protein,Serum 6.3 g/dl (6.3-8.2)
[2024-10-06 16:25] LABS: Alkaline Phosphatase 39 U/L (38-126); Bilirubin,Total 0.5 mg/dl (0.2-1.3); Chloride 113 mmol/L (98-107); Potassium 3.9 mmoL/L (3.5-5.1); Sodium 136 mmol/L (136-145); Uric Acid 2.7 mg/dl (2.5-6.2)
[2024-10-06 16:26] LABS: Anion Gap 7.9 mEq/L (5-15)
== END 2024-10-06 23:59 | disposition home or self-care (01) ==
LOC: LAB 15:39
PROVIDERS: PCP Nurse Practitioner Family; Visit Provider Obstetrics & Gynecology
DX: Z34.90 Encounter for supervision of normal pregnancy, unspecified, unspecified trimester (principal)
CPT/HCPCS: 36415; 80053; 82570; 84156; 84550; 85025

== ENCOUNTER 2024-11-16 14:14 | Outpatient (CLI) | payer OTHER, SELFPAY ==
--- NOTE | 2024-11-16 14:18 | US_ITS ---
PROCEDURE: US OB TRANSVAGINAL CLINICAL INDICATION: Check Cervical Length COMPARISON: US US TRANSVAGINAL from 07/09/2024 US US OB <= 14 WEEKS FETUS from 07/25/2024 FINDINGS: Transvaginal sonographic images of the pelvis were obtained. From her last menstrual period she is 22weeks 3days. position and heart tones are not documented. Cervix is measured transvaginally. Its length is 4.23 cm-4.77 cm. There is a small amount of fluid within the cervical canal. Placenta previa is seen with the anterior placenta overlying the internal cervical os. IMPRESSION: 1. The cervix measures 4.23 cm-4.77 cm transvaginally. 2. There is a small amount of fluid within the cervix. 3. There is placenta previa with the anterior placenta overlying the internal cervical os. Suggest repeat scan at 28 weeks. Dictated by: Calixto Pena MD 11/17/2024 10:45 Calixto Pena MD in [place] 11/17/2024 10:45
== END 2024-11-16 23:59 | disposition home or self-care (01) ==
LOC: RAD 14:15
PROVIDERS: PCP Nurse Practitioner Family; Visit Provider Obstetrics & Gynecology
DX: Z36.86 Encounter for antenatal screening for cervical length (principal); Z3A.22 22 weeks gestation of pregnancy
CPT/HCPCS: 76817

== ENCOUNTER 2024-11-27 08:01 | Emergency (ER) | payer OTHER, SELFPAY ==
[2024-11-27 08:10] VITALS: BP 115/70; PULSE 95; RESP 19; TEMP 37.1; O2SAT 99; BMI 35.8
[2024-11-27 08:20] VITALS: BP 115/70; PULSE 95; RESP 19; TEMP 37.1; O2SAT 99
--- NOTE | 2024-11-27 08:22 | EXP.UTC ---
Discharge Plan Disposition Patient Disposition: Home, Self-Care Condition: Good Prescriptions Prescriptions: New fluticasone propionate [Flonase Allergy Relief] 50 mcg/actuation spray,suspension 2 spray intranasal DAILY Qty: 16 0RF Rx Instructions: administer into each nostril daily No Action (DME) Dexcom G7 Sensor Device See Rx Instructions .Route Qty: 1 0RF Rx Instructions: As directed nifedipine 60 mg tablet extended release 24hr 60 mg PO DAILY Patient Comments: TAKE ONE TABLET BY MOUTH EVERY DAY omeprazole 20 mg capsule,delayed release(DR/EC) 20 mg PO DAILY Patient Comments: TAKE ONE CAPSULE BY MOUTH EVERY DAY labetalol 100 mg tablet 100 mg PO Q8H Patient Comments: TAKE TWO TABLETS BY MOUTH EVERY 8 HOURS metformin 500 mg tablet extended release 24 hr 500 mg PO BID Patient Comments: TAKE ONE TABLET BY MOUTH TWICE DAILY sertraline 50 mg tablet 50 mg PO DAILY Patient Comments: TAKE ONE TABLET BY MOUTH EVERY DAY insulin glargine [Basaglar KwikPen U-100 Insulin] 100 unit/mL (3 mL) insulin pen 10 unit SQ HS Patient Comments: INJECT 10 UNITS SUBCUTANEOUSLY AT BEDTIME Referrals Follow up/Referrals: Destiny Bright APRN [Primary Care Provider] - See instructions Activity Restrictions/Add. Instructions Additional Instructions/Restrictions: Use flonase as prescribed Speak with your OBGYN to see what you can take over the counter Follow up with your Family Doctor if needed Clinical Impressions Clinical Impression: Acute dysfunction of eustachian tube Instructions Patient Instructions: DI for Eustachian Tube Dysfunction-Adult, Fluticasone Nasal [place] Print Language Print Language: Palestinian Discharge ED Provider: Snow Mcdonald [facility] HPI General Stated complaint: pain in both ears congestion Mode of Arrival: Ambulatory Source of Information: Patient Limitations: No Limitations Time Seen by Provider: 11/27/24 08:22 Description of Symptoms (Recalled from Triage Doc. by RN): PATIENT C/O BILATERAL EAR PAIN THAT STARTED TODAY AND CONGESTION X 1 WEEK HEENT Symptoms (Recalled from RN notes): Yes Resp Symptoms (Recalled from RN notes): No Skin Symptoms (Recalled from RN notes): No MS Symptoms (Recalled from RN notes): No Functional Status (Recalled from RN notes): WNL History of Present Illness Provider Complaint: Pt states that she has been having nasal congestion, clear drainage and woke up this morning with pain and pressure in both ears States that she is so she came in to get checked Related Data Home Medications ?Medication ?Instructions ?Recorded ?Confirmed insulin glargine 100 unit/mL (3 10 unit SQ HS 11/27/24 11/27/24 mL) subcutaneous pen (Basaglar KwikPen U-100 Insulin) labetalol 100 mg tablet 100 mg PO Q8H 11/27/24 11/27/24 metformin 500 mg tablet,extended 500 mg PO BID 11/27/24 11/27/24 release 24 hr nifedipine 60 mg tablet,extended 60 mg PO DAILY 11/27/24 11/27/24 release 24 hr omeprazole 20 mg capsule,delayed 20 mg PO DAILY 11/27/24 11/27/24 release sertraline 50 mg tablet 50 mg PO DAILY 11/27/24 11/27/24 Previous Rx's ?Medication ?Instructions ?Recorded blood-glucose sensor ([employer] G7 #1 ea 10/31/24 Sensor device) fluticasone propionate 50 2 spray intranasal DAILY #16 grams 11/27/24 mcg/actuation nasal spray,suspension (Flonase Allergy Relief) Allergies Allergy/AdvReac Type Severity Reaction Status Date / Time cephalexin (From Keflex) Allergy Severe Rash Verified 11/16/24 13:30 Worker's Comp Is this a Worker's Comp case?: No [facility] Disclaimer: The information contained in this section may have been updated after the patient was seen, as this information can be updated by other users. Medical History Hypertension affecting , antepartum PCOS (polycystic ovarian syndrome) Prediabetes Depression History of prediabetes History of PCOS Menorrhagia Hypertension Surgical History History of carpal tunnel surgery Hx of tonsillectomy Family History Other Cancer FHx: mental illness Heart attack Hypertension Social History Smoking Status: Never smoker alcohol intake: never substance use type: denies use current occupational status: employed Travel in the last 8 weeks: None Have you lived/traveled outside US in past 30 days?: No Contact w/someone who lives/traveled outside US past 30 days?: Yes Exposure to someone with infectious disease in past 14 days?: No Do you have a fever (greater than 100.4 F or 38 C)?: No Have you tested positive for COVID-19: No Exposed to someone with COVID-19 in past 14 days?: No Do you have a sore throat?: No Do you have a cough?: No Do you have any weakness?: No Do you have any diarrhea?: No Are you experiencing any unusual bleeding?: No Do you have any muscle aches/pain?: No Do you have any abdominal pain?: No Are you experiencing loss of taste or smell?: No ROS Obtained: Yes All systems reviewed & no additional complaints except as documented and Yes Systems reviewed as appropriate & no additional complaints except as documented Constitutional Constitutional: Reports system reviewed and no additional complaints, except as documented and Reports as per HPI ENT Ears, Nose, Mouth, and Throat: Reports system reviewed and no additional complaints, except as documented, Reports as per HPI, Reports nasal congestion and Reports nasal discharge Cardiovascular Cardiovascular: Reports system reviewed and no additional complaints, except as documented and Reports as per HPI Respiratory Respiratory: Reports system reviewed and no additional complaints, except as documented and Reports as per HPI Gastrointestinal Gastrointestingal: Reports system reviewed and no additional complaints, except as documented and as per HPI Musculoskeletal Musculoskeletal: Reports system reviewed and no additional complaints, except as documented and Reports as per HPI Physical Exam General General appearance: alert and in no apparent distress ENT ENT exam: Present mucous membranes moist Expanded ENT Exam TM/Canal exam: Bilateral TM: bulging (mild, no redness) Nose exam: Absent sinus tenderness Throat exam: Present normal inspection Respiratory Respiratory exam: Present normal lung sounds bilaterally; Absent respiratory distress or wheezes Cardiovascular Cardiovascular exam: Present regular rate, normal rhythm and normal heart sounds Abdominal Exam Abdominal exam: Present soft and normal bowel sounds; Absent distention or tenderness Neurological Exam Neurological exam: Present alert, oriented X3 and normal gait Medical Decision Making Medical Records Screening: Per USPSTF and CDC recommendations, given the prevalence of disease in our region, it is our hospital?s policy to screen for HIV and viral Hepatitis for all patients aged 18 and over and those with ongoing risk factors. Honorio Inquiry Pt receiving controlled substance: No Honorio was queried for this patient: No Vital Signs: 11/27/24 08:10 Temperature 98.8 F Temperature Source Oral Pulse Rate [Left Brachial] 95 H Respiratory Rate 19 Blood Pressure [Left Arm] 115/70 Blood Pressure Mean [Left Arm] 85 Blood Pressure Source [Left Arm] Automatic Cuff Blood Pressure Position [Left Arm] Sitting 02 Sat by Pulse Oximetry 99 Oxygen Delivery Method Room Air
== END 2024-11-27 08:24 | disposition home or self-care (01) ==
PROVIDERS: Emergency Provider Nurse Practitioner; PCP Nurse Practitioner Family
DX: H69.93 Unspecified Eustachian tube disorder, bilateral (principal)
CPT/HCPCS: 99212; G0381

== ENCOUNTER 2024-12-22 17:40 | Outpatient (CLI) | payer OTHER, SELFPAY ==
[2024-12-22 17:56] VITALS: BMI 33.3
[2024-12-22 17:58] LABS: Microscopic, Urine URINE MICROSCOPIC (MICROSCOPIC)
[2024-12-22 18:09] VITALS: BP 140/80; PULSE 92; RESP 16; TEMP 37.1; O2SAT 97; BMI 33.3
[2024-12-22 18:17] LABS: Appearance,Urine CLEAR (Clear); Bilirubin,Urine Negative (Negative); Blood, Urine 2+ (Negative); Color,Urine YELLOW (Yellow); Glucose,Urine (UA) TRACE (Negative); Ketones,Urine Negative (Negative); Leukocyte Esterase,Urine Negative (Negative); Nitrate,Urine Negative (Negative); Protein,Urine Negative (Negative); Specific Gravity, Urine 1.025 (1.005-1.030); Urobilinogen,Urine 0.2 EU/dl (0.2)
[2024-12-22 18:31] LABS: Amphetamine/Metha Screen,Urine Negative ng/ml (<1000)
[2024-12-22 18:32] LABS: Barbiturates Screen,Urine Negative ng/ml (<200); Benzodiazepines Screen,Urine Negative ng/ml (<200)
[2024-12-22 18:33] LABS: Cocaine Screen,Urine Negative ng/ml (<300)
[2024-12-22 18:34] LABS: Cannabinoid Screen,Urine Negative ng/ml (<50); Methadone Screen,Urine Negative ng/ml (<300)
[2024-12-22 18:35] LABS: Opiate Screen,Urine Negative ng/ml (<300); Phencyclidine Screen,Urine Negative ng/ml (<25)
--- NOTE | 2024-12-22 18:42 | US_ITS ---
PROCEDURE INFORMATION: Exam: US , Transvaginal Exam date and time: 12/22/2024 6:53 PM Age: 29 years old Clinical indication: Lmp or gestational age (in weeks): 27 weeks 3 days; Other: Spotting; ; Additional info: Vaginal bleeding LABS AND CLINICAL REPORTS: Gestational age (Established): 27 w 4 d Estimated due date (Established): 03/19/2025 TECHNIQUE: Imaging protocol: Real-time transvaginal obstetrical ultrasound of the maternal pelvis with image documentation. Transvaginal imaging was used for better evaluation of the fetus, adnexa, and/or cervix. COMPARISON: US OB TRANSVAGINAL 11/16/2024 2:25 PM FINDINGS: Gestation: Intrauterine gestational sac marginally visualized. MATERNAL: Cervix: Cervical length measures 4.58 cm. No funneling. IMPRESSION: Normal cervical length. No funneling.
[2024-12-22 18:50] LABS: WBC,Urine Occasional #/hpf (0-3)
[2024-12-22 18:51] LABS: Bacteria,Urine 3+ /lpf; Mucus,Urine 1+ /lpf
== END 2024-12-22 19:37 | disposition home or self-care (01) ==
LOC: OBOUT 17:41 → OB 17:42
PROVIDERS: PCP Nurse Practitioner Family; Visit Provider Obstetrics & Gynecology
DX: O26.852 Spotting complicating pregnancy, second trimester (principal); Z3A.27 27 weeks gestation of pregnancy
CPT/HCPCS: 76817; 80307; 81001; 87086; G0463

== ENCOUNTER 2024-12-25 19:05 | Outpatient (CLI) | payer OTHER, SELFPAY ==
[2024-12-25 19:17] VITALS: BMI 33.3
[2024-12-25 19:23] LABS: Microscopic, Urine URINE MICROSCOPIC (MICROSCOPIC)
[2024-12-25 19:25] VITALS: BP 122/80; PULSE 98; RESP 16; TEMP 36.8; O2SAT 98; BMI 33.3
[2024-12-25 19:32] LABS: Appearance,Urine CLEAR (Clear); Bilirubin,Urine Negative (Negative); Blood, Urine 3+ (Negative); Color,Urine YELLOW (Yellow); Glucose,Urine (UA) Negative (Negative); Ketones,Urine Negative (Negative); Leukocyte Esterase,Urine Negative (Negative); Nitrate,Urine Negative (Negative); PH,Urine 6.5 (5.0-8.5); Protein,Urine TRACE (Negative); Specific Gravity, Urine >= 1.030 (1.005-1.030); Urobilinogen,Urine 0.2 EU/dl (0.2)
[2024-12-25 19:48] LABS: Amphetamine/Metha Screen,Urine Negative ng/ml (<1000); Barbiturates Screen,Urine Negative ng/ml (<200)
[2024-12-25 19:49] LABS: Benzodiazepines Screen,Urine Negative ng/ml (<200)
[2024-12-25 19:51] LABS: Cannabinoid Screen,Urine Negative ng/ml (<50)
[2024-12-25 19:52] LABS: Cocaine Screen,Urine Negative ng/ml (<300)
[2024-12-25 19:53] LABS: Methadone Screen,Urine Negative ng/ml (<300)
[2024-12-25 19:54] LABS: Opiate Screen,Urine Negative ng/ml (<300); Phencyclidine Screen,Urine Negative ng/ml (<25)
[2024-12-25] MEDS: LACTATED RINGERS 1000ML 1,000 ML 999 ML IV (20:16)
[2024-12-25] MEDS: BETAMETHASONE ACET/PHOS 6MG/ML 5ML MDV 12 MG IM (20:17)
[2024-12-25 22:13] LABS: RBC,Urine 20-50 #/hpf (0-3); WBC,Urine Occasional #/hpf (0-3)
[2024-12-25 22:14] LABS: Bacteria,Urine 2+ /lpf
== END 2024-12-25 21:42 | disposition home or self-care (01) ==
LOC: OBOUT 19:07 → OB 19:07
PROVIDERS: PCP Nurse Practitioner Family; Visit Provider Nurse Practitioner Obstetrics & Gynecology
DX: O46.93 Antepartum hemorrhage, unspecified, third trimester (principal); Z3A.28 28 weeks gestation of pregnancy
CPT/HCPCS: 80307; 81001; 87086; G0463; J0702; J7120

== ENCOUNTER 2025-01-30 13:45 | Outpatient (CLI) | payer OTHER, SELFPAY ==
--- NOTE | 2025-01-30 13:46 | US_ITS ---
PROCEDURE: US OB TRANSVAGINAL CLINICAL INDICATION: placenta previa and check cervical length COMPARISON: US US OB TRANSVAGINAL from 12/22/2024 US US OB BIOPHYSICAL PROFILE from 01/30/2025 FINDINGS: Transvaginal sonographic images of the pelvis were obtained to check the cervical length. From her last menstrual period she is 33weeks 1day. Fetus is in the cephalic presentation. Transvaginally the cervix measures 3.33 cm-3.39 cm. There is no evidence of funneling. The placenta is not seen transvaginally and is not low lying. IMPRESSION: 1. Transvaginal images of the cervix are seen. The fetus is cephalic. 2. The cervix measures 3.33-3.39 cm in length. There is no funneling. 3. No evidence of placenta close to the internal os during the transvaginal exam. Dictated by: Calixto Pena MD 01/30/2025 15:05 Calxito Pena MD in [facility] 01/30/2025 15:05
--- NOTE | 2025-01-30 13:46 | US_ITS ---
PROCEDURE: US OB BIOPHYSICAL PROFILE CLINICAL INDICATION: check fluid and placenta COMPARISON: US US OB <= 14 WEEKS FETUS from 07/25/2024 US US OB TRANSVAGINAL from 11/16/2024 US US OB TRANSVAGINAL from 12/22/2024 FINDINGS: Transabdominal sonographic images of the uterus were obtained. From her established due date she is 33weeks 1day. The following parameters are obtained: Viable Fetus in the cephalic presentation with an anterior placenta grade 2. The cervix measures 2.89 cm. Measurements: heart Rate = 143bpm Amniotic fluid index: 22.64cm, MVP 8.51 cm. Qualitative AFV:2 Breathing movements: 2 Gross Body Movements: 2 Tone: 2 Biophysical profile score: 8 No obvious anomalies evident.Kidneys, profile, stomach, bladder, four-chamber heart, three-vessel cord appear normal. IMPRESSION: 1. Viable fetus in the cephalic presentation with anterior placenta grade 2. 2. The fluid appears elevated with an amniotic fluid index 22.64 cm. MVP is 8.51 cm which is consistent with mild polyhydramnios. 3. Biophysical profile 8/8 with good breathing movement and movement seen. 4. Limited anatomical scan appears normal. Dictated by: Calixto Pena MD 01/30/2025 15:02 Calixto Pena MD in [place] 01/30/2025 15:02
== END 2025-01-30 23:59 | disposition home or self-care (01) ==
LOC: RAD 13:46
PROVIDERS: PCP Nurse Practitioner Family; Visit Provider Obstetrics & Gynecology
DX: Z36.86 Encounter for antenatal screening for cervical length (principal); O16.3 Unspecified maternal hypertension, third trimester; O24.313 Unspecified pre-existing diabetes mellitus in pregnancy, third trimester; O44.03 Complete placenta previa NOS or without hemorrhage, third trimester; Z3A.33 33 weeks gestation of pregnancy; Z87.898 Personal history of other specified conditions
CPT/HCPCS: 76817; 76819

== ENCOUNTER 2025-02-02 16:01 | Outpatient (CLI) | payer OTHER, SELFPAY ==
[2025-02-02 16:21] VITALS: BP 127/68; PULSE 103; RESP 17; TEMP 36.7; O2SAT 96; BMI 34.1
[2025-02-02 16:52] LABS: Microscopic, Urine URINE MICROSCOPIC (MICROSCOPIC)
[2025-02-02 17:11] LABS: Bilirubin,Urine Negative (Negative); Blood, Urine Negative (Negative); Color,Urine YELLOW (Yellow); Glucose,Urine (UA) Negative (Negative); Ketones,Urine Negative (Negative); Leukocyte Esterase,Urine Negative (Negative); Nitrate,Urine Negative (Negative); PH,Urine 6.5 (5.0-8.5); Protein,Urine Negative (Negative); Specific Gravity, Urine 1.025 (1.005-1.030); Urobilinogen,Urine 0.2 EU/dl (0.2)
[2025-02-02 17:24] LABS: Appearance,Urine Slightly Cloudy (Clear)
[2025-02-02 17:52] LABS: Bacteria,Urine 4+ /lpf
[2025-02-02 17:53] LABS: Mucus,Urine 1+ /lpf
== END 2025-02-02 17:15 | disposition home or self-care (01) ==
LOC: OBOUT 16:03 → OB 16:03
PROVIDERS: PCP Nurse Practitioner Family; Visit Provider Obstetrics & Gynecology
DX: Z3A.31 31 weeks gestation of pregnancy; O10.913 Unspecified pre-existing hypertension complicating pregnancy, third trimester
CPT/HCPCS: 81001; 87086; G0463

== ENCOUNTER 2025-02-06 12:41 | Outpatient (CLI) | payer OTHER, SELFPAY ==
--- NOTE | 2025-02-06 12:47 | US_ITS ---
PROCEDURE: US OB BIOPHYSICAL PROFILE CLINICAL INDICATION: PLACENTA PREVIA COMPARISON: US US OB <= 14 WEEKS FETUS from 07/25/2024 US US OB TRANSVAGINAL from 11/16/2024 US US OB TRANSVAGINAL from 12/22/2024 US US OB BIOPHYSICAL PROFILE from 01/30/2025 US US OB TRANSVAGINAL from 01/30/2025 FINDINGS: Transabdominal sonographic images of the uterus were obtained. From her established due date she is 34weeks 1day. The following parameters are obtained: Viable Fetus in the transverse presentation with the head on the left side. There is an anterior placenta grade 2. The placenta appears transabdominally to be just covering the internal os. Would suggest a repeat scan transvaginally to better assess this. Cervix measures 4.73 cm. Measurements: heart Rate = 132bpm Amniotic fluid index: 22.1cm, MVP 9.51 cm Qualitative AFV:2 Breathing movements: 2 Gross Body Movements: 2 Tone: 2 Biophysical profile score: 8 No obvious anomalies evident.Kidneys, bladder, stomach, four-chamber heart, three-vessel cord appear normal. IMPRESSION: 1. Viable fetus in the transverse presentation with the head on the maternal left side. 2. There is an anterior placenta grade 2 that just covers the internal os when seen transabdominally. A transvaginal ultrasound may better differentiate this. 3. The fluid is elevated with an amniotic fluid index 22.1 cm and MVP 9.51 cm. 4. Biophysical profile is 8/8 with good breathing movement and movement seen. 5. Limited anatomical scan appears normal. Dictated by: Calixto Pena MD 02/06/2025 15:04 Calixto Pena MD in [place] 02/06/2025 15:04
== END 2025-02-06 23:59 | disposition home or self-care (01) ==
LOC: RAD 12:42
PROVIDERS: PCP Nurse Practitioner Family; Visit Provider Obstetrics & Gynecology
DX: O44.03 Complete placenta previa NOS or without hemorrhage, third trimester (principal); O24.313 Unspecified pre-existing diabetes mellitus in pregnancy, third trimester; O16.3 Unspecified maternal hypertension, third trimester; Z3A.34 34 weeks gestation of pregnancy
CPT/HCPCS: 76819

== ENCOUNTER 2025-02-10 07:31 | Observation (INO) | payer OTHER, SELFPAY ==
[2025-02-09 12:43] VITALS: BMI 33.9
[2025-02-09 12:58] VITALS: BP 128/74; PULSE 105; RESP 18; TEMP 37.3; O2SAT 97; BMI 33.9
--- NOTE | 2025-02-09 13:51 | US_ITS ---
PROCEDURE INFORMATION: Exam: US Biophysical Profile Without Non-Stress Test Exam date and time: 02/09/2025 2:09 PM Age: 29 years old Clinical indication: Condition or disease; Other: Non reactive nst; TECHNIQUE: Imaging protocol: US biophysical profile without non-stress testing. Total images: 642 COMPARISON: US OB TRANSVAGINAL 02/09/2025 1:59 PM FINDINGS: heart rate: 135 bpm Amniotic fluid index: PRIYANKA is 11.44 cm. BIOPHYSICAL PROFILE: breathing (BPP): 2 /2 gross body movement (BPP): 2 /2 tone (BPP): 2 /2 Amniotic fluid (BPP): 2 /2 Biophysical profile score (BPP): 8 /8 IMPRESSION: Biophysical profile score 8/8.
--- NOTE | 2025-02-09 13:51 | US_ITS ---
PROCEDURE INFORMATION: Exam: US , Transvaginal Exam date and time: 02/09/2025 1:59 PM Age: 29 years old Clinical indication: Screening exam; Other: Questioning placenta previa; ; Additional info: Placental placement LABS AND CLINICAL REPORTS: Gestational age (Established): 34 w 4 d Estimated due date (Established): 03/19/2025 TECHNIQUE: Imaging protocol: Real-time transvaginal obstetrical ultrasound of the maternal pelvis with image documentation. Transvaginal imaging was used for better evaluation of the fetus, adnexa, and/or cervix. Total images: 75 COMPARISON: US OB BIOPHYSICAL PROFILE 02/06/2025 12:48 PM FINDINGS: Gestation: Intrauterine gestation. heart rate: heart rate recorded to be 135 bpm. Placenta: No evidence of placental tissue at the internal cervix. Anterior placenta grade 2. Amniotic fluid index: PRIYANKA is 11.4 cm. MATERNAL: Cervix: Cervical length measures 3.78 cm. IMPRESSION: 1. No evidence of placental tissue at the internal cervix. 2. Cervical length 3.8 cm.
[2025-02-09] MEDS: METFORMIN 500MG TABLET 500 MG PO (20:43)
[2025-02-09] MEDS: INSULIN GLARGINE 100 UNITS/ML 3ML FLEXPEN 12 UNIT SUBCUT (20:44)
[2025-02-09] MEDS: LABETALOL 100MG TABLET 200 MG PO (22:16)
--- NOTE | 2025-02-10 07:34 | US_ITS ---
PROCEDURE INFORMATION: Exam: US Biophysical Profile Without Non-Stress Test Exam date and time: 02/10/2025 8:24 AM Age: 29 years old Clinical indication: Other: Non reactive nst 02/09/25; ; Additional info: Non reactive nst on 02/09/2025 TECHNIQUE: Imaging protocol: US biophysical profile without non-stress testing. COMPARISON: US OB BIOPHYSICAL PROFILE 02/09/2025 2:09 PM FINDINGS: heart rate: 140 bpm Amniotic fluid index: PRIYANKA is 15.65 cm. BIOPHYSICAL PROFILE: breathing (BPP): 2 /2 gross body movement (BPP): 2 /2 tone (BPP): 2 /2 Amniotic fluid (BPP): 2 /2 Biophysical profile score (BPP): 8 /8 MATERNAL ANATOMY: Cervix: Cervical length measures 3.05 cm. No funneling. IMPRESSION: 1. Single live intrauterine containing a fetus. 2. Biophysical profile 8/
[2025-02-10 07:40] VITALS: BP 146/87; PULSE 83; RESP 18; TEMP 36.5; O2SAT 100
[2025-02-10] MEDS: LABETALOL 100MG TABLET 200 MG PO (07:43)
[2025-02-10] MEDS: METFORMIN 500MG TABLET 500 MG PO (10:12)
[2025-02-10] MEDS: SERTRALINE 50MG TABLET 50 MG PO (10:12)
[2025-02-10] MEDS: PANTOPRAZOLE 40MG TABLET 40 MG PO (10:13)
[2025-02-10] MEDS: NIFEdipine XL 30MG TABLET 60 MG PO (10:14)
[2025-02-10] MEDS: INSULIN GLARGINE 100 UNITS/ML 3ML FLEXPEN 12 UNIT SUBCUT (10:23)
--- NOTE | 2025-02-10 12:02 | EXP.HPDC ---
General Admission date:: 02/10/25 Discharge date: 02/10/25 *Admission Date: 02/09/25 *Chief complaint: nonreactive NST *History of present illness: Anisa Johnson is a 29-year-old G2, P1 who presented for a scheduled NST yesterday and it was found to be nonreactive. Follow-up BPP was 8 out of 8. Secondary to concern for decreased variability with her nonreactive NST she was observed overnight with prolonged monitoring and frequent repeat NSTs. Her NST is since then have all been reactive. Her BPP this morning was 8 out of 8. Her has been complicated by chronic hypertension, pregestational diabetes, obesity, depression, polyhydramnios, and placenta previa. -Hypertension is managed with labetalol 200 mg 3 times a day and nifedipine 60 mg once daily. She denies any headaches or vision changes or signs of superimposed preeclampsia -Her pregestational diabetes is managed by [facility] and she is currently taking 12 units of insulin glargine twice daily. She is also taking metformin 500 mg twice daily. Her polyhydramnios associated with her diabetes is improved on her most recent ultrasound -Obesity: BMI of 31 -Depression is well-controlled with 50 mg of sertraline -On most recent transvaginal ultrasound placenta previa has completely resolved. She will follow-up ultrasound with [facility] tomorrow for evaluation [facility] Disclaimer: The information contained in this section may have been updated after the patient was seen, as this information can be updated by other users. Medical History Hypertension affecting , antepartum PCOS (polycystic ovarian syndrome) Prediabetes Depression History of prediabetes History of PCOS Menorrhagia Hypertension Surgical History History of carpal tunnel surgery Hx of tonsillectomy Family History Other Cancer FHx: mental illness Heart attack Hypertension Social History (Updated 02/09/25 @ 14:42 by Jace Harris RN) Smoking Status: Never smoker alcohol intake: never substance use type: denies use current occupational status: employed Travel in the last 8 weeks: None Have you lived/traveled outside US in past 30 days?: No Contact w/someone who lives/traveled outside US past 30 days?: No Exposure to someone with infectious disease in past 14 days?: No Do you have a fever (greater than 100.4 F or 38 C)?: No Have you tested positive for COVID-19: No Exposed to someone with COVID-19 in past 14 days?: No Do you have a sore throat?: No Do you have a cough?: No Do you have any weakness?: No Are you experiencing any nausea/vomitting?: No Do you have any diarrhea?: No Are you experiencing any unusual bleeding?: No Do you have any muscle aches/pain?: No Do you have any abdominal pain?: No Are you experiencing loss of taste or smell?: No Other Medical History Have you received the Flu Vaccine for this season: No Have you received the Pneumonia Vaccine: No Review of Systems Review of Systems Review of systems (narrative): Review of Systems Constitutional: Denies fever, chills, and sweats Eyes: Denies vision change/ pain Respiratory: Denies cough and shortness of breath Cardiovascular: Denies chest pain and lightheadedness Gastrointestinal: Denies abdominal pain. Denies nausea, vomiting. Genitourinary: Denies dysuria and incontinence Musculoskeletal: Denies shoulder pain and back pain Neurological: Denies change in speech or headaches Exam Data for Last 24 hours Vital signs and Labs for Last 24 Hours: Temp Pulse Resp BP Pulse Ox O2 Del Method 97.7 F 83 18 146/87 H 100 Room Air 02/10/25 07:40 02/10/25 07:40 02/10/25 07:40 02/10/25 07:40 02/10/25 07:40 02/10/25 07:40 I & O for Last 24 hours: Intake & Output 02/07/25 02/08/25 02/09/25 02/10/25 23:59 23:59 23:59 23:59 Weight 204 lb Constitutional Constitutional: no acute distress *Routine HEENT Exam Head: Present normocephalic Eye: Present EOMI and PERRL ENT: Present mucous membranes moist *Routine Neck Exam Neck: Present supple; Absent lymphadenopathy *Routine Respiratory Exam Respiratory: Present CTA bilaterally *Routine Cardiovascular Exam Cardiovascular: Present RRR *Routine Abdominal Exam Abdominal: Present soft and normoactive bowel sounds; Absent tenderness *Routine Rectal Exam Rectal:: deferred *Routine Genitalia Exam Genitalia:: deferred *Routine Extremities Exam Extremities: Absent cyanosis, clubbing or edema *Routine Skin Exam Skin: Present warm; Absent rash *Routine Neurological Exam Neurological: Present alert and oriented X3 Meds Home Medications and Allergies Home Medications ?Medication ?Instructions ?Recorded ?Confirmed ?Type metformin 500 mg tablet,extended 500 mg PO BID 11/27/24 02/10/25 History release 24 hr nifedipine 60 mg tablet,extended 60 mg PO DAILY 11/27/24 02/10/25 History release 24 hr omeprazole 20 mg capsule,delayed 20 mg PO DAILY 11/27/24 02/10/25 History release sertraline 50 mg tablet 50 mg PO DAILY 11/27/24 02/10/25 History blood-glucose sensor (Dexcom G7 #3 ea 11/29/24 02/06/25 Rx Sensor device) insulin glargine 100 unit/mL (3 12 unit SQ BID 01/11/25 02/10/25 History mL) subcutaneous pen (Basaglar KwikPen U-100 Insulin) labetalol 100 mg tablet 200 mg PO Q8H 02/10/25 02/10/25 History New Prescriptions to Start Prescriptions: Allergies Allergy/AdvReac Type Severity Reaction Status Date / Time cephalexin (From Keflex) Allergy Severe Rash Verified 02/06/25 13:43 Hospital Course Hospital Course Hospital Course: Patient was admitted and monitored. All testing has been reactive, reassuring. movement has been noted by the patient and on the monitor. She was counseled extensively on her stillbirth risk. I spent greater than 15 minutes discussing her risk factors for stillbirth and the signs and symptoms that she should watch out for. We reviewed when to return. We discussed delivery at 36 to 37 weeks. Patient elects to defer to 37 weeks as long as maternal and indication do not require earlier intervention. She was extensively counseled on return instructions. She will see [facility] Wednesday and had an NST in my office on Discharge Plan Disposition Patient Disposition: Home, Self-Care Follow up Plan Follow up with: Mindy Tom DO [Staff Physician] - 02/15/25 1:00 pm () Prescriptions/Medication Reconciliation: Continued (DME) Dexcom G7 Sensor Device See Rx Instructions .ROUTE .COMPLEX Qty: 3 3RF Dose Instruction: USE DIRECTED TO TEST BLOOD GLUCOSE LEVEL CHANGE SENSOR EVERY 10 DAYS Rx Instructions: USE DIRECTED TO TEST BLOOD GLUCOSE LEVEL CHANGE SENSOR EVERY 10 DAYS nifedipine 60 mg tablet extended release 24hr 60 mg PO DAILY Patient Comments: TAKE ONE TABLET BY MOUTH EVERY DAY omeprazole 20 mg capsule,delayed release(DR/EC) 20 mg PO DAILY Patient Comments: TAKE ONE CAPSULE BY MOUTH EVERY DAY metformin 500 mg tablet extended release 24 hr 500 mg PO BID Patient Comments: TAKE ONE TABLET BY MOUTH TWICE DAILY sertraline 50 mg tablet 50 mg PO DAILY Patient Comments: TAKE ONE TABLET BY MOUTH EVERY DAY insulin glargine [Basaglar KwikPen U-100 Insulin] 100 unit/mL (3 mL) insulin pen 12 unit SQ BID Patient Comments: INJECT 10 UNITS SUBCUTANEOUSLY AT BEDTIME labetalol 100 mg tablet 200 mg PO Q8H Patient Comments: TAKE TWO TABLETS BY MOUTH EVERY 8 HOURS Problem Reconciliation Problems Reviewed?: Yes Patient Discharge Instructions ACTIVITY: Continue current activity DIET: regular diet Patient Instructions: How to Do Kick Counts, Antepartum Care Print Language: Azerbaijani Providers Primary Care Provider: Destiny Bright Admit Provider: Mindy Tom Attending Provider: Mindy Tom
== END 2025-02-10 12:23 | disposition home or self-care (01) ==
LOC: OBOUT 07:31 → OB 07:31
PROVIDERS: Admitting Provider Obstetrics & Gynecology; PCP Nurse Practitioner Family; Visit Provider Obstetrics & Gynecology
DX: O24.414 Gestational diabetes mellitus in pregnancy, insulin controlled (principal); O36.8330 Maternal care for abnormalities of the fetal heart rate or rhythm, third trimester, not applicable or unspecified; O10.913 Unspecified pre-existing hypertension complicating pregnancy, third trimester; O40.3XX0 Polyhydramnios, third trimester, not applicable or unspecified; O99.343 Other mental disorders complicating pregnancy, third trimester; F32.A Depression, unspecified; Z3A.34 34 weeks gestation of pregnancy
CPT/HCPCS: 59025; 76817; 76819; G0378

== ENCOUNTER 2025-04-27 09:25 | Outpatient (CLI) | payer OTHER, SELFPAY | END 2025-04-27 23:59 | disposition home or self-care (01) | LOC: LAB 09:26 | PROVIDERS: PCP Nurse Practitioner Family; Visit Provider Obstetrics & Gynecology | DX: R73.03 Prediabetes (principal) ==

== ENCOUNTER 2025-04-30 10:00 | Outpatient (CLI) | payer OTHER, SELFPAY ==
[2025-04-30 12:37] LABS: Glucose, 2 Hour PP 117 mg/dl (74-100)
== END 2025-04-30 23:59 | disposition home or self-care (01) ==
LOC: LAB 10:01
PROVIDERS: PCP Nurse Practitioner Family; Visit Provider Obstetrics & Gynecology
DX: R73.03 Prediabetes (principal)
CPT/HCPCS: 36415; 82950

== ENCOUNTER 2025-05-22 10:31 | Outpatient (CLI) | payer OTHER, SELFPAY ==
[2025-05-22 10:42] VITALS: BMI 31.1
[2025-05-22 11:05] LABS: Hematocrit 39.7 % (37.0-47.0); Hemoglobin 12.3 g/dL (12.2-16.2); Immature Granulocytes % 0.3 %; Mean Corpuscular HGB Conc 31.0 g/dL (31.8-35.4); Mean Corpuscular Hemoglobin 24.2 pg (27.0-31.2); Mean Corpuscular Volume 78.1 fl (81-99); Nucleated Red Blood Cells % 0 %; Platelet Count 331 K/mm3 (142-424); Red Blood Count 5.08 M/mm3 (4.20-5.40); Red Cell Distribution Width-SD 47.8 fL; White Blood Count 6.9 K/mm3 (4.8-10.8)
[2025-05-22 11:16] LABS: HCG Qualitative, Serum Negative (Negative)
[2025-05-22 11:18] LABS: Anion Gap 17.8 mEq/L (5-15); Blood Urea Nitrogen 11 mg/dl (7-17); Calcium 9.4 mg/dl (8.4-10.2); Carbon Dioxide 26 mmol/L (22.0-30.0); Chloride 99 mmol/L (98-107); Creatinine Clearance Estimated 160 mL/min (50-200); Creatinine,Serum 0.70 mg/dl (0.52-1.04); Estimated Glomerular Filt Rate 100 ml/min (>60); GFR (African American) 121 ML/MIN (>60); Glucose 106 mg/dl (74-100); Potassium 3.8 mmoL/L (3.5-5.1); Sodium 139 mmol/L (136-145)
== END 2025-05-22 23:59 | disposition home or self-care (01) ==
LOC: PREOP 10:32
PROVIDERS: PCP Nurse Practitioner Family; Visit Provider Obstetrics & Gynecology
DX: Z01.812 Encounter for preprocedural laboratory examination (principal)
CPT/HCPCS: 80048; 84703; 85025

== ENCOUNTER 2025-05-25 06:01 | Day surgery (SDC) | payer OTHER, SELFPAY ==
[2025-05-23 07:59] VITALS: BMI 31.1
[2025-05-25] VITALS (12 sets, daily range): BP systolic 128–160; BP diastolic 73–103; PULSE 75–104; RESP 18; TEMP 36.1–43; O2SAT 94–104
[2025-05-25] MEDS: LACTATED RINGERS 1000ML 1,000 ML 25 ML IV (06:17)
--- NOTE | 2025-05-25 07:19 | EXP.ANES.CKL ---
[facility] Disclaimer: The information contained in this section may have been updated after the patient was seen, as this information can be updated by other users. Medical History Hypertension affecting , antepartum PCOS (polycystic ovarian syndrome) Prediabetes Depression History of prediabetes History of PCOS Menorrhagia Hypertension Surgical History History of delivery History of carpal tunnel surgery Hx of tonsillectomy Family History Other Cancer FHx: mental illness Heart attack Hypertension Social History Smoking Status: Never smoker alcohol intake: never substance use type: denies use current occupational status: employed Travel in the last 8 weeks?: None Have you lived/traveled outside US in past 30 days?: No Contact w/someone who lives/traveled outside US past 30 days?: No Exposure to someone with infectious disease in past 14 days?: No Do you have a fever (greater than 100.4 F or 38 C)?: No Have you tested positive for COVID-19?: No Exposed to someone with COVID-19 in past 14 days?: No Do you have a sore throat?: No Do you have a cough?: No Do you have any weakness?: No Do you have any diarrhea?: No Are you experiencing any unusual bleeding?: No Do you have any muscle aches/pain?: No Do you have any abdominal pain?: No Are you experiencing loss of taste or smell?: No [facility] Anesthesia Checklist Patient Identification Patient Identification: Arm Band and Verbal (Name & ) Structural Data Admitted From: Home Planned Operative Procedure/s: lap tubal Consent for Planned Operative Procedure(s) Verified: Yes Verified Documents: Surgical Consent and History and Physical NPO Status Verified Time NPO: 00:00 Additional verifications Patient : No Anesthesia Reactions: No Hx Blood Transfusions: No Blood Transfusion Reaction: No Airway Assessment Mallampati Score:: Class II C-Spine Mobility Assessed: Yes Dentition: Good Dentition Neurological Assessment Level of Consciousness: Awake, Alert and Appropriate Hx Seizures: No Numbness or tingling in extremities: No Anesthesia Plan Anesthesia Risk discussed: Yes Anesthesia Plan: Verified ASA Class: II Anesthesia Type: General
[2025-05-25] MEDS: LIDOCAINE 1% W/EPI 1:100,000 20ML VIAL 20 ML (08:00)
[2025-05-25] MEDS: SODIUM CHLORIDE IRRIG SOLUTION 3,000 ML 200 ML IR (08:30)
--- NOTE | 2025-05-25 09:03 | P.PNANES_ITS ---
[facility] Disclaimer: The information contained in this section may have been updated after the patient was seen, as this information can be updated by other users. Medical History Hypertension affecting , antepartum PCOS (polycystic ovarian syndrome) Prediabetes Depression History of prediabetes History of PCOS Menorrhagia Hypertension Surgical History History of delivery History of carpal tunnel surgery Hx of tonsillectomy Family History Other Cancer FHx: mental illness Heart attack Hypertension Social History Smoking Status: Never smoker alcohol intake: never substance use type: denies use current occupational status: employed Travel in the last 8 weeks?: None Have you lived/traveled outside US in past 30 days?: No Contact w/someone who lives/traveled outside US past 30 days?: No Exposure to someone with infectious disease in past 14 days?: No Do you have a fever (greater than 100.4 F or 38 C)?: No Have you tested positive for COVID-19?: No Exposed to someone with COVID-19 in past 14 days?: No Do you have a sore throat?: No Do you have a cough?: No Do you have any weakness?: No Do you have any diarrhea?: No Are you experiencing any unusual bleeding?: No Do you have any muscle aches/pain?: No Do you have any abdominal pain?: No Are you experiencing loss of taste or smell?: No [facility] Anesthesia Checklist Additional verifications Anesthesia Reactions: No Hx Blood Transfusions: No Blood Transfusion Reaction: No
--- NOTE | 2025-05-25 09:03 | EXP.ANES.I ---
[facility] Anesthesia Record Part I Anesthesia Record I Intake, IV Amount: 800 Hydration: Adequate Estimated blood loss (mL): 10 Urine output (mL): 0 Blood Pressure: 134/80 SaO2: 98 Pulse Rate: 93 Airway Patency: Patent Respiratory Rate: 18 Temperature: 97 F Patient is:: Awake, Mask O2, Nasal O2 and Stable Stable to PACU at:: 09:10
--- NOTE | 2025-05-25 09:37 | EXP.OP.NOTE ---
Date of procedure: 05/25/25 Pre-op Diagnosis:: 1. Desires sterilization Post-op Diagnosis:: 1. Desires sterilization 2. Significant adhesions to the anterior abdominal wall. Suspect hernia Procedure performed:: 1. Adhesiolysis 2. Laparoscopic bilateral salpingectomy Surgeon:: Mindy Tom DO [employer] INSTALLER:: Leigha Borja Anesthesia: GETA Estimated blood loss (mL): 10 Operative findings:: 1. Bimanual examination revealed an anteverted 6-week size uterus with smooth contour without any adnexal masses. 2. Laparoscopic exam revealed normal-appearing uterus, ovaries, fallopian tubes and liver. 3. There were adhesions noted extending from the left colon to the left pelvic sidewall and dense adhesions of the omentum from the umbilicus down to the pelvis. Operative note:: Anisa Johnson is a 30yo who desires permanent sterilization. Risk and benefits were reviewed at length. We discussed LARCs and she desired to proceed with a permanent procedure. The patient was taken to the operating room where general anesthesia was obtained and noted to be adequate. SCDs were placed for thromboembolism prophylaxis and found to be working. The patient was placed in the dorsal lithotomy position using yellowfin stirrups. Timeout verified the correct patient and procedure. The patient was prepped and draped in a usual sterile fashion. A catheter was used to drain her bladder. An acorn uterine manipulator was placed and my top gloves were removed. 10mL of Lidocaine with epinepherine was injected infraumbilically and a scalpel was used to make a 5 mm infraumbilical incision with the assistance from a hemostat. The skin was tented and Optiview blunt trocar was introduced into the abdomen in the usual fashion. CO2 gas was connected with an initial pressure of 6 mmHg noted. Pneumoperitoneum was created to a pressure of 15 mmHg. The laparoscopic camera was inserted and a quick survey of the abdomen revealed thick omental adhesions making visualization difficult. I was able to get a view of the left lower quadrant, slight higher than where i typically place the trocar and placed a second 8mm port. I was able to take down enough adhesions to manipulate the camera to the other side of the abdomen and place my RLQ 5mm port under direct visualization. The adhesions were directly abutting the infraumbilical port making the adhesiolysis technically challenging. Carefully the adhesions were , inspected for bowel and cauterized and cut. After approximately 30-40 minutes the adhesions were taken down and access to the pelvis was gained. The fallopian tubes were identified on the cornu of the uterus and followed out to the ovaries which revealed grossly appearing anatomy. A grasper was used to elevate the left fallopian tube. This was technically challenging due to the bowel and left colon adhesions to the pelvic sidewall. Cold cut was used to take enough thin filmy adhesions down to mobilize the fallopian tube. The Ligasure was used to grasp the fimbriated end of the fallopian tube, ensuring complete removal of the fimbriae, it was clamped, coagulated and transected. This process was repeated serially working towards the uterus to allow complete removal of the fallopian tube. Careful attention was given to transected the Mesosalpinx proximal to the fallopian tube. The fallopian tube was removed from the abdominal cavity and passed off the operative field to be sent to pathology. Hemostasis was noted. Attention was then turned to the right fallopian tube and the process was repeated. Hemostasis was noted and the tube was removed along with the trocar and handed off the operative field to be sent to pathology. Pneumoperitoneum reduced, and the adhesiolysis sites were inspected carefully and for greater than two minutes without any significant bleeding. All ports removed. The 3 abdominal incisions were closed with a single simple interrupted suture using 4-0 Monocryl. Dermabond was applied to each skin incision. The Gutierrez uterine manipulator was removed. All counts were correct x2, per nursing. The patient was extubated, stable, and transferred to the PACU. She will be discharged after meeting all DC criteria to include voiding, ambulating and tolerating PO independently. Condition: stable Disposition: same day Specimens:: Bilateral fallopian tubes Complications:: None
--- NOTE | 2025-05-25 12:48 | EXP.ANES.II ---
[facility] Anesthesia Record Part II Anesthesia Record Part II Discharge Time: 09:30 Destination: Surgical Day Care (OP Surgery) PACU nurse assessment reviewed?: Yes Patient Condition:: Good Anesthesia Complications:: None Swallowing reflex intact?: Yes Airway Patency: Patent Cyanosis?: No Blood Pressure: 128/77 SaO2: 98 Respiratory Rate: 18 Pulse Rate: 104 Temperature: 97 F Mental Status: Alert & Oriented Pain level:: 0 Nausea and/or vomitting:: None Intake, IV Amount: 0 Hydration: Adequate
== END 2025-05-25 10:05 | disposition home or self-care (01) ==
PROVIDERS: PCP Nurse Practitioner Family; Visit Provider Obstetrics & Gynecology
PROC: (CPT 58661; principal; 2025-05-25 07:30)
DX: Z30.2 Encounter for sterilization (principal); K66.0 Peritoneal adhesions (postprocedural) (postinfection); N73.6 Female pelvic peritoneal adhesions (postinfective); I10 Essential (primary) hypertension; F32.A Depression, unspecified; R73.03 Prediabetes; E28.2 Polycystic ovarian syndrome; E66.811 Obesity, class 1; Z98.891 History of uterine scar from previous surgery; Z88.1 Allergy status to other antibiotic agents; Z68.31 Body mass index [BMI] 31.0-31.9, adult
CPT/HCPCS: 58661; J1100; J1200; J1885; J2003; J2004; J2250; J2405; J2704; J3010; J7120